=== PATIENT | female | born 1960 | race Caucasian/White ===

== ENCOUNTER 2018-04-11 08:55 | Inpatient (IN) ==
[2018-04-11] MEDS ORDERED: *HR* HYDROmorphone 2 MG/ML SYRINGE IM ONE (09:55)
[2018-04-11] MEDS ORDERED: Ondansetron ODT 4 MG TAB.RAPDIS SL ONE (09:55)
[2018-04-11] MEDS ORDERED: Ketorolac 15 MG/ML VIAL IM ONE (09:55)
[2018-04-11] MEDS ORDERED: Hyoscyamine SL 0.125 MG TAB.SUBL SL ONE (09:56)
--- NOTE | 2018-04-11 09:57 | Emergency Department Note ---
Disposition Clinical Impression: Perforation of sigmoid colon due to diverticulitis, Tachycardia Urinary tract infection Qualifiers: Urinary tract infection type: site unspecified Hematuria presence: without hematuria Qualified Code(s): N39.0 - Urinary tract infection, site not specified Disposition: Admitted As Inpatient Condition: Fair Abdominal Pain HPI - General Chief Complaint: ED Abdominal Pain Stated Complaint: Kidney stone Time Seen by Provider: 04/11/18 09:16 Source: patient, family Mode of arrival: private vehicle Limitations: no limitations Nursing Notes Reviewed: Yes Vital Signs Reviewed: Yes - History of Present Illness Pt Subjective Complaint: abdominal pain Onset (ago): day(s) Consistency: constant, intermittent Location: periumbilical, LLQ, RLQ Pain Severity: moderate, severe Pain Scale: 9 Quality: stabbing, fullness, sharp Radiation: none Migration to: no migration Improves with: nothing Worsens with: nothing Context: other (recent UTI) Associated symptoms: Reports: nausea, dysuria. Denies: vomiting, diarrhea, fever, chills, constipation, hematemesis, hematochezia, melena, hematuria, anorexia, syncope Treatments prior to arrival: other (was seen by PCP three days ago for urinary complaints. Urine dipstick in the office was reportedly negative. Patient states that she was given Rx for ABX and pyridium, but then was called at home two days ago and was instructed to stop the antibiotics b/c the culture was negative. Review of patient's culture today shows that it is positive for E.coli) - Related Data Home Medications Medication Instructions Recorded Confirmed RX: Omeprazole [PriLOSEC] 20 mg PO DAILY 08/15/15 04/12/18 Cyanocobalamin (Vitamin B-12) 1,000 mcg PO DAILY 04/12/18 04/12/18 [Vitamin B12] Ezetimibe 10 mg PO DAILY 04/12/18 04/12/18 Ibuprofen [Ibu-200] 400 mg PO Q2H PRN 04/12/18 04/12/18 Mv,Ca,Min/Folic Acid/Vit K1 1 tab PO DAILY 04/12/18 04/12/18 [One-A-Day Women's 50 Plus Tab] RX: Atenolol [Tenormin] 25 mg PO BID 04/12/18 04/12/18 RX: Tamsulosin [Flomax] 0.4 mg PO DAILY 04/12/18 04/12/18 Varenicline Tartrate [Chantix] 1 mg PO BID 04/12/18 04/12/18 Allergies Allergy/AdvReac Type Severity Reaction Status Date / Time Cefaclor [From [facility]] AdvReac Hives Verified 07/19/15 12:27 All systems ED: reviewed and negative except as stated. Review of Systems: As Per HPI Constitutional: Denies: fever, chills, weakness Cardiovascular: Denies: chest pain, palpitations, dyspnea on exertion Respiratory: Denies: cough, dyspnea, wheezes Gastrointestinal: Reports: as per HPI, abdominal pain, nausea. 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 Absent: scleral icterus, conjunctival injection, periorbital swelling - ENT ENT exam: mucous membranes dry - Neck Neck exam: Present: normal inspection, full ROM, trachea midline. Absent: tenderness, meningismus, lymphadenopathy - Respiratory Respiratory exam: Present: normal lung sounds bilaterally. Absent: respiratory distress, wheezes, stridor (treatment) - Cardiovascular Cardiovascular exam: Present: normal rhythm, tachycardia, normal heart sounds. Absent: systolic murmur, diastolic murmur - Abdominal Exam Abdominal exam: Present: soft, tenderness, distention, diminished bowel sounds. Absent: guarding, rebound, rigidity, organomegaly, Paulino's sign, Rovsing's sign, tenderness at McBurney's Point, ascites, mass, pulsatile mass Abdominal tenderness: Present: RUQ, LLQ, mild - Extremities Exam Extremities exam: Present: normal inspection, full ROM. Absent: pedal edema - Neurological Exam Neurological exam: Present: alert, oriented X3, CN II-XII intact - Psychiatric Psychiatric exam: Present: normal affect, normal mood - Skin Skin exam: Present: warm, dry, intact, normal color Course Course Narrative: Patient presents to ED with for eval of abdominal pain and decreased urine output with urinary frequency. She states, "I think I have a kidney ston e." She appears very uncomfortable and is requesting something for pain. She states that she was seen by her PCP for this about 3 days ago and was on ABX for a day. She was called at home and instructed to stop the ABX. Review of the urine culture today shows that it grew e.coli. Patient ok with catheterization. Chowdhury ordered for suspected retention as patient's abdomen is distended. Urine output was only 50cc. Patient still having some discomfort, but states, "Much improved" after pain meds. CT ordered. CT shows free air in abd, sigmoid diverticulitis with perforation and abscess formation. Radiologist Dr. Gibbs called to discuss the results. He adds that the location of the abscess makes it not amenable to IR procedural evacuation. Discussed results with the patient. She has had a colonoscopy done by Dr. Bae in the past and would like for us to consult him. Case discussed with Dr. Bae. He is agreeable to admit the patient and will send his Surgical ALYSHA, [employer], to eval the patient. - Reevaluation(s) Reevaluation #1: Patient resting comfortably. She is still afebrile. A little anxious about the CT findings. HR is in 130's now. Upon previous re-evaluation, patient was sleeping and HR was in the low 90's. She states that her HR is often fast and she takes a blood pressure pill for it. Reevaluation #2: artis Joe finished. Patient resting comfortably. She is an ED HOLD right now. Vital Signs Temperature 97.4 F L 04/11/18 08:56 Pulse Rate 117 04/11/18 08:56 Respiratory Rate 20 04/11/18 08:56 Blood Pressure 135/80 04/11/18 08:56 O2 Sat by Pulse Oximetry 95 04/11/18 08:56 Temperature 98.3 F 04/12/18 16:18 Pulse Rate 136 04/12/18 16:18 Respiratory Rate 16 04/12/18 16:18 Blood Pressure 146/89 04/12/18 16:18 O2 Sat by Pulse Oximetry 92 04/12/18 16:18 Oxygen Delivery Oxygen Delivery Room Air Abdominal Pain - Medical Records Medical records reviewed: Yes I reviewed the patient's medical records. - Lab Data Lab results reviewed: Yes I reviewed the patient's lab results. Lab results narrative: Laboratory Last Values WBC 13.6 K/mcL (4.3-11.1) H D 04/12/18 03:27 RBC 3.51 M/mcL (3.82-4.97) L 04/12/18 03:27 Hgb 12.0 g/dL (11.5-15.4) D 04/12/18 03:27 Hct 37.2 % (35.3-44.9) 04/12/18 03:27 MCV 106.0 fL (83.0-100.0) H 04/12/18 03:27 MCH 34.2 pg (28.0-33.3) H 04/12/18 03:27 MCHC 32.3 g/dL (31.6-35.5) 04/12/18 03:27 RDW 13.0 % (11.5-14.5) 04/12/18 03:27 Plt Count 209 K/mcL (140-400) 04/12/18 03:27 MPV 11.9 fL (9.4-12.4) 04/12/18 03:27 Immature Gran % 0.8 % (0-4) 04/11/18 11:01 Seg Neutrophils % 56.0 % 04/12/18 03:27 Band Neutrophils % 32.0 % (0-4) H 04/12/18 03:27 Lymphocytes % 2.0 % 04/12/18 03:27 Monocytes % 10.0 % 04/12/18 03:27 Eosinophils % 0.3 % 04/11/18 11:01 Basophils % 0.3 % 04/11/18 11:01 Neutrophils # 12.0 K/mcL (1.6-8.9) H 04/12/18 03:27 Lymphocytes # 0.3 K/mcL (0.6-4.6) L 04/12/18 03:27 Monocytes # 1.4 K/mcL (0.0-1.3) H 04/12/18 03:27 Eosinophils # 0.0 K/mcL (0.0-0.6) 04/11/18 11:01 Basophils # 0.0 K/mcL (0.0-0.2) 04/11/18 11:01 Platelet Estimate Normal (Normal) 04/12/18 03:27 Sodium 139 mEq/L (136-145) 04/12/18 03:27 Potassium 3.9 mEq/L (3.5-5.1) 04/12/18 03:27 Chloride 110 mEq/L (98-107) H 04/12/18 03:27 Carbon Dioxide 20 mEq/L (23-29) L 04/12/18 03:27 BUN 14 mg/dL (6-20) 04/12/18 03:27 Creatinine 0.65 mg/dL (0.60-1.20) 04/12/18 03:27 Est GFR ( Amer) > 60 (> 60) 04/12/18 03:27 Est GFR (Non-Af Amer) > 60 (> 60) 04/12/18 03:27 BUN/Creatinine Ratio 22 (6-26) 04/12/18 03:27 Glucose 163 mg/dL (70-105) H 04/12/18 03:27 POC Glucose 176 mg/dL (70-99) H 04/12/18 06:18 Calculated Osmolality 292 (280-300) 04/12/18 03:27 Lactic Acid 1.4 mmol/L (0.5-2.2) 04/12/18 08:52 Calcium 8.0 mg/dL (8.6-10.3) L 04/12/18 03:27 Phosphorus 3.2 mg/dL (2.7-4.5) 04/12/18 03:27 Magnesium 1.4 mg/dL (1.6-2.6) L 04/12/18 03:27 Prealbumin 9.4 mg/dL (17.0-34.0) L 04/12/18 03:27 Urine Color [place] (Yellow) A 04/11/18 12:35 Urine Clarity Turbid (Clear) A 04/11/18 12:35 Urine pH 5.5 pH Units (5.0-8.0) 04/11/18 12:35 Ur Specific [place] 1.021 (1.010-1.025) 04/11/18 12:35 Urine Protein 100 mg/dL (Neg-Trace) H 04/11/18 12:35 Urine Glucose (UA) Normal mg/dL (Normal) 04/11/18 12:35 Urine Ketones 15 mg/dL (Negative) H 04/11/18 12:35 Urine Blood Negative (Negative) 04/11/18 12:35 Urine Nitrite Positive (Negative) A 04/11/18 12:35 Urine Bilirubin Small (Negative) H 04/11/18 12:35 Urine Urobilinogen Normal mg/dL (Normal) 04/11/18 12:35 Ur Leukocyte Esterase Small (Negative) H 04/11/18 12:35 Urine Microscopic RBC 0-3 per hpf (0-3) 04/11/18 12:35 Urine Microscopic WBC 15-30 per hpf (0-3) H 04/11/18 12:35 Ur Squamous Epith Cells Many per lpf (None-Few) H 04/11/18 12:35 Calcium Oxalate Crystal Present 04/11/18 12:35 Urine Bacteria Many per hpf (None-Few) H 04/11/18 12:35 Ur Culture Indicated? NO. (NO) A 04/11/18 12:35 Result diagrams: 04/12/18 03:27 04/12/18 03:27 Lab Results 04/11/18 04/11/18 04/11/18 Range/Units 11:01 11:01 12:35 WBC 6.4 (4.3-11.1) K/mcL RBC 4.24 (3.82-4.97) M/mcL Hgb 14.6 (11.5-15.4) g/dL Hct 44.2 (35.3-44.9) % MCV 104.2 H (83.0-100.0) fL MCH 34.4 H (28.0-33.3) pg MCHC 33.0 (31.6-35.5) g/dL RDW 12.7 (11.5-14.5) % Plt Count 249 (140-400) K/mcL MPV 12.0 (9.4-12.4) fL Immature Gran % 0.8 (0-4) % Seg Neutrophils % 89.7 % Lymphocytes % 5.9 % Monocytes % 3.0 % Eosinophils % 0.3 % Basophils % 0.3 % Neutrophils # 5.8 (1.6-8.9) K/mcL Lymphocytes # 0.4 L (0.6-4.6) K/mcL Monocytes # 0.2 (0.0-1.3) K/mcL Eosinophils # 0.0 (0.0-0.6) K/mcL Basophils # 0.0 (0.0-0.2) K/mcL Sodium 137 (136-145) mEq/L Potassium 3.7 (3.5-5.1) mEq/L Chloride 105 (98-107) mEq/L Carbon Dioxide 20 L (23-29) mEq/L BUN 12 (6-20) mg/dL Creatinine 0.76 (0.60-1.20) mg/dL Est GFR ( Amer) > 60 (> 60) Est GFR (Non-Af Amer) > 60 (> 60) BUN/Creatinine Ratio 16 (6-26) Glucose 157 H (70-105) mg/dL Calculated Osmolality 287 (280-300) Lactic Acid (0.5-2.2) mmol/L Calcium 9.5 (8.6-10.3) mg/dL Urine Color [place] A (Yellow) Urine Clarity Turbid A (Clear) Urine pH 5.5 (5.0-8.0) pH Units Ur Specific [place] 1.021 (1.010-1.025) Urine Protein 100 H (Neg-Trace) mg/dL Urine Glucose (UA) Normal (Normal) mg/dL Urine Ketones 15 H (Negative) mg/dL Urine Blood Negative (Negative) Urine Nitrite Positive A (Negative) Urine Bilirubin Small H (Negative) Urine Urobilinogen Normal (Normal) mg/dL Ur Leukocyte Esterase Small H (Negative) Urine Microscopic RBC 0-3 (0-3) per hpf Urine Microscopic WBC 15-30 H (0-3) per hpf Ur Squamous Epith Cells Many H (None-Few) per lpf Calcium Oxalate Crystal Present Urine Bacteria Many H (None-Few) per hpf Ur Culture Indicated? NO. A (NO) 04/11/18 Range/Units 13:16 WBC (4.3-11.1) K/mcL RBC (3.82-4.97) M/mcL Hgb (11.5-15.4) g/dL Hct (35.3-44.9) % MCV (83.0-100.0) fL MCH (28.0-33.3) pg MCHC (31.6-35.5) g/dL RDW (11.5-14.5) % Plt Count (140-400) K/mcL MPV (9.4-12.4) fL Immature Gran % (0-4) % Seg Neutrophils % % Lymphocytes % % Monocytes % % Eosinophils % % Basophils % % Neutrophils # (1.6-8.9) K/mcL Lymphocytes # (0.6-4.6) K/mcL Monocytes # (0.0-1.3) K/mcL Eosinophils # (0.0-0.6) K/mcL Basophils # (0.0-0.2) K/mcL Sodium (136-145) mEq/L Potassium (3.5-5.1) mEq/L Chloride (98-107) mEq/L Carbon Dioxide (23-29) mEq/L BUN (6-20) mg/dL Creatinine (0.60-1.20) mg/dL Est GFR ( Amer) (> 60) Est GFR (Non-Af Amer) (> 60) BUN/Creatinine Ratio (6-26) Glucose (70-105) mg/dL Calculated Osmolality (280-300) Lactic Acid 1.5 (0.5-2.2) mmol/L Calcium (8.6-10.3) mg/dL Urine Color (Yellow) Urine Clarity (Clear) Urine pH (5.0-8.0) pH Units Ur Specific [place] (1.010-1.025) Urine Protein (Neg-Trace) mg/dL Urine Glucose (UA) (Normal) mg/dL Urine Ketones (Negative) mg/dL Urine Blood (Negative) Urine Nitrite (Negative) Urine Bilirubin (Negative) Urine Urobilinogen (Normal) mg/dL Ur Leukocyte Esterase (Negative) Urine Microscopic RBC (0-3) per hpf Urine Microscopic WBC (0-3) per hpf Ur Squamous Epith Cells (None-Few) per lpf Calcium Oxalate Crystal Urine Bacteria (None-Few) per hpf Ur Culture Indicated? (NO) - Radiology Data Radiology results reviewed: Yes I reviewed the patient's radiology results. Abdomen/Pelvis CT 04/11/18 11:01 IMPRESSION: Findings suspicious for perforated sigmoid diverticulitis, with multiple foci of free air seen throughout the patient's abdomen and pelvis including adjacent to the sigmoid colon, and extending up into the subdiaphragmatic region bilaterally. There is also a focal area of gas and fluid seen immediately adjacent to the sigmoid colon and focal pericolonic inflammatory changes and sigmoid wall thickening suggestive of a possible small early abscess measuring 2.4 x 2.5 cm. Multiple small bowel loops demonstrate circumferential thickening seen around this area of mesenteric induration, which may be related to inflammatory enteritis secondary to the underlying infectious process. The 1st 2 impressions were discussed with Krystle Douglas in the emergency department at 10:05 a.m. on 04/11/2018. D/ / Justyn Prescott MD / Justyn Prescott MD Interpreting Provider: Justyn Prescott MD
[2018-04-11 11:30] LABS: Basophils % 0.3 %; Eosinophils % 0.3 %; Hematocrit 44.2 % (35.3-44.9); Hemoglobin 14.6 g/dL (11.5-15.4); Immature Granulocytes % 0.8 % (0-4); Lymphocytes # 0.4 K/mcL (0.6-4.6); Lymphocytes % 5.9 %; Mean Corpuscular Hemoglobin 34.4 pg (28.0-33.3); Mean Corpuscular Volume 104.2 fL (83.0-100.0); Monocytes # 0.2 K/mcL (0.0-1.3); Neutrophils # 5.8 K/mcL (1.6-8.9); Platelet Count 249 K/mcL (140-400); Red Blood Count 4.24 M/mcL (3.82-4.97); Red Cell Distribution Width 12.7 % (11.5-14.5); Segmented Neutrophils % 89.7 %
--- NOTE | 2018-04-11 11:36 | Emergency Department Note ---
Disposition Clinical Impression: Diverticulitis Disposition: Admitted As Inpatient Condition: Fair Time of Disposition: 18:55 General Adult HPI - General Chief complaint: ED Abdominal Pain Stated complaint: Kidney stone Time Seen by Provider: 04/11/18 09:16 Source: patient, family Mode of arrival: private vehicle Limitations: no limitations - History of Present Illness Pain Scale: 9 - Related Data Home Medications Medication Instructions Recorded Confirmed Metoprolol [Lopressor] 25 mg PO BID 08/15/15 08/15/15 RX: Omeprazole [PriLOSEC] 20 mg PO DAILY 08/15/15 08/15/15 Previous Rx's Medication Instructions Recorded Sulfamethoxazole/Trimeth DS 1 each PO BID #20 tablet 08/15/15 [Bactrim DS] Allergies Allergy/AdvReac Type Severity Reaction Status Date / Time Cefaclor [From Ceclor] AdvReac Hives Verified 07/19/15 12:27 Past Medical History - Past Medical History Medical history: Reports: GERD, hepatitis, hypertension Surgical history: Reports: cholecystectomy Psychiatric history: Reports: no psych history DESIGN 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 - Social History Smoking Status: Current every day smoker Smokeless Tobacco Status: No Alcohol use: Reports: occasionally, heavy, recent Drug use: Reports: none Physical Exam - General Limitations: no limitations General appearance: alert, in no apparent distress Course Vital Signs Temperature 97.4 F L 04/11/18 08:56 Pulse Rate 117 04/11/18 08:56 Respiratory Rate 20 04/11/18 08:56 Blood Pressure 135/80 04/11/18 08:56 O2 Sat by Pulse Oximetry 95 04/11/18 08:56 Temperature 98.9 F 04/11/18 18:34 Pulse Rate 122 04/11/18 18:34 Respiratory Rate 15 04/11/18 18:34 Blood Pressure 112/75 04/11/18 18:34 O2 Sat by Pulse Oximetry 92 04/11/18 18:34 Oxygen Delivery Oxygen Delivery Room Air Medical Decision Making - Lab Data Result diagrams: 04/11/18 11:01 04/11/18 11:01 Lab Results 04/11/18 04/11/18 04/11/18 Range/Units 11:01 11:01 12:35 WBC 6.4 (4.3-11.1) K/mcL RBC 4.24 (3.82-4.97) M/mcL Hgb 14.6 (11.5-15.4) g/dL Hct 44.2 (35.3-44.9) % MCV 104.2 H (83.0-100.0) fL MCH 34.4 H (28.0-33.3) pg MCHC 33.0 (31.6-35.5) g/dL RDW 12.7 (11.5-14.5) % Plt Count 249 (140-400) K/mcL MPV 12.0 (9.4-12.4) fL Immature Gran % 0.8 (0-4) % Seg Neutrophils % 89.7 % Lymphocytes % 5.9 % Monocytes % 3.0 % Eosinophils % 0.3 % Basophils % 0.3 % Neutrophils # 5.8 (1.6-8.9) K/mcL Lymphocytes # 0.4 L (0.6-4.6) K/mcL Monocytes # 0.2 (0.0-1.3) K/mcL Eosinophils # 0.0 (0.0-0.6) K/mcL Basophils # 0.0 (0.0-0.2) K/mcL Sodium 137 (136-145) mEq/L Potassium 3.7 (3.5-5.1) mEq/L Chloride 105 (98-107) mEq/L Carbon Dioxide 20 L (23-29) mEq/L BUN 12 (6-20) mg/dL Creatinine 0.76 (0.60-1.20) mg/dL Est GFR ( Amer) > 60 (> 60) Est GFR (Non-Af Amer) > 60 (> 60) BUN/Creatinine Ratio 16 (6-26) Glucose 157 H (70-105) mg/dL Calculated Osmolality 287 (280-300) Lactic Acid (0.5-2.2) mmol/L Calcium 9.5 (8.6-10.3) mg/dL Urine Color [place] A (Yellow) Urine Clarity Turbid A (Clear) Urine pH 5.5 (5.0-8.0) pH Units Ur Specific [place] 1.021 (1.010-1.025) Urine Protein 100 H (Neg-Trace) mg/dL Urine Glucose (UA) Normal (Normal) mg/dL Urine Ketones 15 H (Negative) mg/dL Urine Blood Negative (Negative) Urine Nitrite Positive A (Negative) Urine Bilirubin Small H (Negative) Urine Urobilinogen Normal (Normal) mg/dL Ur Leukocyte Esterase Small H (Negative) Urine Microscopic RBC 0-3 (0-3) per hpf Urine Microscopic WBC 15-30 H (0-3) per hpf Ur Squamous Epith Cells Many H (None-Few) per lpf Calcium Oxalate Crystal Present Urine Bacteria Many H (None-Few) per hpf Ur Culture Indicated? NO. A (NO) 04/11/18 Range/Units 13:16 WBC (4.3-11.1) K/mcL RBC (3.82-4.97) M/mcL Hgb (11.5-15.4) g/dL Hct (35.3-44.9) % MCV (83.0-100.0) fL MCH (28.0-33.3) pg MCHC (31.6-35.5) g/dL RDW (11.5-14.5) % Plt Count (140-400) K/mcL MPV (9.4-12.4) fL Immature Gran % (0-4) % Seg Neutrophils % % Lymphocytes % % Monocytes % % Eosinophils % % Basophils % % Neutrophils # (1.6-8.9) K/mcL Lymphocytes # (0.6-4.6) K/mcL Monocytes # (0.0-1.3) K/mcL Eosinophils # (0.0-0.6) K/mcL Basophils # (0.0-0.2) K/mcL Sodium (136-145) mEq/L Potassium (3.5-5.1) mEq/L Chloride (98-107) mEq/L Carbon Dioxide (23-29) mEq/L BUN (6-20) mg/dL Creatinine (0.60-1.20) mg/dL Est GFR ( Amer) (> 60) Est GFR (Non-Af Amer) (> 60) BUN/Creatinine Ratio (6-26) Glucose (70-105) mg/dL Calculated Osmolality (280-300) Lactic Acid 1.5 (0.5-2.2) mmol/L Calcium (8.6-10.3) mg/dL Urine Color (Yellow) Urine Clarity (Clear) Urine pH (5.0-8.0) pH Units Ur Specific [place] (1.010-1.025) Urine Protein (Neg-Trace) mg/dL Urine Glucose (UA) (Normal) mg/dL Urine Ketones (Negative) mg/dL Urine Blood (Negative) Urine Nitrite (Negative) Urine Bilirubin (Negative) Urine Urobilinogen (Normal) mg/dL Ur Leukocyte Esterase (Negative) Urine Microscopic RBC (0-3) per hpf Urine Microscopic WBC (0-3) per hpf Ur Squamous Epith Cells (None-Few) per lpf Calcium Oxalate Crystal Urine Bacteria (None-Few) per hpf Ur Culture Indicated? (NO) Attestation Statement - Attestation Attestation: For this encounter, I have reviewed the THREAD SEPARATOR or PA documentation, treatment plan, and medical decision making;.Face to face time provided Plan of care discussed with the physician's graduate research assistant Concern for perforated diverticula. The patient to be admitted to the surgical service after initiation of broad-spectrum antibiotics
[2018-04-11 11:49] LABS: Blood Urea Nitrogen 12 mg/dL (6-20); Calcium 9.5 mg/dL (8.6-10.3); Carbon Dioxide 20 mEq/L (23-29); Chloride 105 mEq/L (98-107); Glucose 157 mg/dL (70-105); Osmolality,Calculated 287 (280-300); Potassium 3.7 mEq/L (3.5-5.1); Sodium 137 mEq/L (136-145)
[2018-04-11] MEDS: 0.9 % Sodium Chloride 1,000 ML IVC ONE ×2 (11:56→13:27)
[2018-04-11] MEDS ORDERED: Piperacillin/Tazobactam 4.5 GM in 0.9 % Sodium Chloride Mini Bag 100 ML IVPB ONE (12:08)
[2018-04-11] MEDS ORDERED: MetroNIDAZOLE 500 MG/100 ML 500 MG/100 ML BAG IVPB ONE (12:22)
[2018-04-11] MEDS ORDERED: Clindamycin 600 MG/50 ML 600 MG/50 ML IV.SOLN IVPB ONE (12:22)
[2018-04-11 12:29] LABS: BUN/Creatinine Ratio 16 (6-26); eGFR For Non-African Americans > 60 (> 60)
[2018-04-11] MEDS ORDERED: 0.9 % Sodium Chloride 1,000 ML IVC ONE ×4 (12:49→22:20)
[2018-04-11] MEDS ORDERED: *HR* HYDROmorphone (PF) 1 MG/ML SYRINGE IVP ONE (12:51)
[2018-04-11 12:52] LABS: Bilirubin,Urine Small (Negative); Blood,Urine Negative (Negative); Clarity,Urine Turbid (Clear); Glucose,Urine (UA) Normal (Normal); Ketones,Urine 15 mg/dL (Negative); Leukocyte Esterase,Urine Small (Negative); Nitrite,Urine Positive (Negative); PH,Urine 5.5 pH Units (5.0-8.0); Protein,Urine 100 mg/dL (Neg-Trace); Specific Gravity,Urine 1.021 (1.010-1.025); Urobilinogen,Urine Normal (Normal)
[2018-04-11 12:54] LABS: Bacteria,Urine Many per hpf (None-Few); Squamous Epithelial Cell,Urine Many per lpf (None-Few); WBC,Urine 15-30 per hpf (0-3)
[2018-04-11 13:11] LABS: Color,Urine Orange (Yellow)
[2018-04-11 13:23] LABS: Calcium Oxalate Crystals,Urine Present; RBC,Urine 0-3 per hpf (0-3)
[2018-04-11] MEDS ORDERED: Ondansetron 4 MG/2 ML VIAL IVP PRN (14:51)
[2018-04-11] MEDS ORDERED: *HR* Promethazine 25 MG/ML VIAL IVP PRN (14:51)
[2018-04-11] MEDS ORDERED: OXYCODONE Oral CONC 10 MG/0.5 ML ORAL.SYG SL PRN ×2 (14:51)
[2018-04-11] MEDS ORDERED: *HR* Metoprolol 5 MG/5 ML VIAL IVP PRN (14:56)
--- NOTE | 2018-04-11 15:05 | General Surg History&Physical ---
Date of Encounter: 04/11/18 Time of Encounter: 15:05 Assessment and Plan (1) SIRS (systemic inflammatory response syndrome) Current Visit: Yes Status: Acute The assessment and plan as outlined above was discussed with the patient and/or family members who expressed understanding and agreement. All questions were answered. Patient meets Sirs criteria with increased heart rate, respiratory rate, and infection source. Her white blood cell count and lactic acid are normal. We will continue to closely monitor. Repeat am labs cardiac monitoring blood cultures obtained in the emergency department pending (2) Perforation of sigmoid colon due to diverticulitis Current Visit: Yes Status: Acute The assessment and plan as outlined above was discussed with the patient and/or family members who expressed understanding and agreement. All questions were answered. CT of the abdomen and pelvis with out contrast on 04/11/2018 noted findings suspicious for a perforated sigmoid diverticulitis with multiple foci free air seen throughout the abdomen. There is a 2.4 x 2.5 cm possible small early abscess forming. There multiple loops of circumferential thickening around the mesenteric induration likely related to inflammatory enteritis. We will continue to closely monitor. Bowel rest pain control repeat a.m. labs continue IV antibiotics (Cipro and Flagyl) out of bed to chair TID continue Chowdhury catheter for accurate intake and output G.I. and DVT prophylaxis (3) Smoking history Current Visit: Yes Status: Acute The assessment and plan as outlined above was discussed with the patient and/or family members who expressed understanding and agreement. All questions were answered. Aggressive pulmonary toileting incentive spirometry schedule duonebs x 2 doses then PRN (4) Tachycardia Current Visit: Yes Status: Acute The assessment and plan as outlined above was discussed with the patient and/or family members who expressed understanding and agreement. All questions were answered. Continue to closely monitor History of Present Illness Chief complaint: abdominal pain HPI: Ms. Gomez is a 57 year old female presented to the emergency department on 04/11/2018 following a 6 day history of left lower abdominal and groin pain. Patient states on Sunday night she began having sharp abdominal discomfort that was 8 out of 10 in the left lower quadrant groin. She reports a history of kidney stones and states this felt similar to previous kidney stone. She felt generalized fatigue and lightheadedness associated. She reports on Sunday she went to her PCP and was placed on an antibiotic for urinary tract infection as well as Pyridium and Flomax. She states she does not feel like her symptoms improved with this medication. She continued to feel poorly on Sunday and Sunday, on Sunday she decided she would attempt to go to work but states she could "barely make it today." On her abdominal discomfort became so severe that she needed to come to the emergency department. She reports a fever at home but not check her temperature. She reports he last BM was one day ago and was normal for her. She had a colonoscopy "2-3 years ago." She endorses chills, abdominal discomfort is described, shortness of breath that is new, and frequency/burning with urination is unchanged. She reports her abdominal discomfort improvement significantly after a dose of pain medication in the emergency department. Her clinical course thus far has included placement of Chowdhury catheter, administration of Cipro, Flagyl, and Cleocin. She had a CT of the abdomen and pelvis which noted findings suspicious for perforated diverticulitis (see assessment and plan for further detail). We will admit the patient for medical management of perforated appendicitis and urinary tract infection. Past Med Surg Social Fam HX - Past Medical History Source: patient, old records reviewed Medical history: GERD, hepatitis, hypertension Psychiatric history: no psych history - Past Surgical History Surgical History: cholecystectomy Additional surgical history: tonsillectomy - Social History Smoking Status: Current every day smoker Packs per day: 4-5 cigarrettes Smokeless Tobacco Status: No Alcohol use: occasionally, heavy, recent Drug use: none Occupational status: employed Current living situation: Home - Independent Activity Level: Independent ambulation Recent Out of Country Travel Within the Last 8 Weeks: No Exposure or Possible Exposure to Illness During Travel: No Medications and Allergies Metoprolol [Lopressor] 25 mg PO BID 08/15/15 [History] Omeprazole [PriLOSEC] 20 mg PO DAILY 08/15/15 [History] Sulfamethoxazole/Trimeth DS [Bactrim DS] 1 each PO BID #20 tablet 08/15/15 [Rx] Allergy/AdvReac Type Severity Reaction Status Date / Time Cefaclor [From Ceclor] AdvReac Hives Verified 07/19/15 12:27 Review of Systems All systems PM: reviewed and no additional remarkable complaints except as st ated All systems PM: The remainder of the systems were reviewed and are negative General Surgery Exam Initial Vital Signs Temp Pulse Resp BP Pulse Ox 97.4 F L 117 20 135/80 95 04/11/18 08:56 04/11/18 08:56 04/11/18 08:56 04/11/18 08:56 04/11/18 08:56 - General physical appearance no distress, other (SOB at rest) - Eyes normal ocular movement - Neck trachea midline - Respiratory other (Short of breath at rest, decreased breath sounds) - Cardiovascular Additional Comments: Distant heart tones, regular rhythm, tachycardia - Abdomen Abdomen general surgery: Present: distended, tender, guarding. Absent: bowel sounds present Hernia: Present: none - Integumentary Integumentary general surgery: Present: warm and dry - Neurologic Present: CN 2-12 grossly intact, normal coordination - Musculoskeletal Present: normal gait, normal posture - Psychiatric Psychiatric general surgery: Present: appropriate, oriented to person, oriented to place, oriented to time, speech is normal, memory intact Results - Labs 04/11/18 11:01 04/11/18 11:01 Abnormal lab results MCV 104.2 fL (83.0-100.0) H 04/11/18 11:01 MCH 34.4 pg (28.0-33.3) H 04/11/18 11:01 Lymphocytes # 0.4 K/mcL (0.6-4.6) L 04/11/18 11:01 Carbon Dioxide 20 mEq/L (23-29) L 04/11/18 11:01 Glucose 157 mg/dL (70-105) H 04/11/18 11:01 Urine Color Dane (Yellow) A 04/11/18 12:35 Urine Clarity Turbid (Clear) A 04/11/18 12:35 Urine Protein 100 mg/dL (Neg-Trace) H 04/11/18 12:35 Urine Ketones 15 mg/dL (Negative) H 04/11/18 12:35 Urine Nitrite Positive (Negative) A 04/11/18 12:35 Urine Bilirubin Small (Negative) H 04/11/18 12:35 Ur Leukocyte Esterase Small (Negative) H 04/11/18 12:35 Urine Microscopic WBC 15-30 per hpf (0-3) H 04/11/18 12:35 Ur Squamous Epith Cells Many per lpf (None-Few) H 04/11/18 12:35 Urine Bacteria Many per hpf (None-Few) H 04/11/18 12:35 Ur Culture Indicated? NO. (NO) A 04/11/18 12:35 Diabetes panel 04/11/18 Range/Units 11:01 Sodium 137 (136-145) mEq/L Potassium 3.7 (3.5-5.1) mEq/L Chloride 105 (98-107) mEq/L Carbon Dioxide 20 L (23-29) mEq/L BUN 12 (6-20) mg/dL Creatinine 0.76 (0.60-1.20) mg/dL Glucose 157 H (70-105) mg/dL Calcium 9.5 (8.6-10.3) mg/dL Calcium panel 04/11/18 Range/Units 11:01 Calcium 9.5 (8.6-10.3) mg/dL Pituitary panel 04/11/18 Range/Units 11:01 Sodium 137 (136-145) mEq/L Potassium 3.7 (3.5-5.1) mEq/L Chloride 105 (98-107) mEq/L Carbon Dioxide 20 L (23-29) mEq/L BUN 12 (6-20) mg/dL Creatinine 0.76 (0.60-1.20) mg/dL Glucose 157 H (70-105) mg/dL Calcium 9.5 (8.6-10.3) mg/dL Adrenal panel 04/11/18 Range/Units 11:01 Sodium 137 (136-145) mEq/L Potassium 3.7 (3.5-5.1) mEq/L Chloride 105 (98-107) mEq/L Carbon Dioxide 20 L (23-29) mEq/L BUN 12 (6-20) mg/dL Creatinine 0.76 (0.60-1.20) mg/dL Glucose 157 H (70-105) mg/dL Calcium 9.5 (8.6-10.3) mg/dL All other labs normal. - Imaging CT scan - abdomen: report reviewed CT scan - pelvis: report reviewed
[2018-04-11] MEDS: Pantoprazole 40 MG VIAL IVP SCH (16:27)
[2018-04-11] MEDS: Ipratropium/Albuterol Neb 3 ML IH SCH ×2 (16:41→22:15)
[2018-04-11] MEDS: 0.9 % Sodium Chloride 1,000 ML IVC SCH (17:26)
[2018-04-11] MEDS: *HR* Heparin 5,000 UNIT/ML VIAL SQ SCH (17:27)
[2018-04-11] MEDS: *HR* HYDROmorphone 2 MG/ML SYRINGE IVP PRN ×2 (18:44→21:42)
[2018-04-11] MEDS: MetroNIDAZOLE 500 MG/100 ML 500 MG/100 ML BAG IVPB SCH (20:30)
[2018-04-12] MEDS: *HR* HYDROmorphone 2 MG/ML SYRINGE IVP PRN ×5 (00:41→16:10)
[2018-04-12 04:03] LABS: Hematocrit 37.2 % (35.3-44.9); Mean Corpuscular HGB Conc 32.3 g/dL (31.6-35.5); Mean Corpuscular Hemoglobin 34.2 pg (28.0-33.3); Mean Platelet Volume 11.9 fL (9.4-12.4); Platelet Count 209 K/mcL (140-400); Red Blood Count 3.51 M/mcL (3.82-4.97)
[2018-04-12] MEDS: MetroNIDAZOLE 500 MG/100 ML 500 MG/100 ML BAG IVPB SCH (04:22)
[2018-04-12 04:26] LABS: BUN/Creatinine Ratio 22 (6-26); Blood Urea Nitrogen 14 mg/dL (6-20); Carbon Dioxide 20 mEq/L (23-29); Chloride 110 mEq/L (98-107); Glucose 163 mg/dL (70-105); Magnesium 1.4 mg/dL (1.6-2.6); Osmolality,Calculated 292 (280-300); Phosphorous 3.2 mg/dL (2.7-4.5); Potassium 3.9 mEq/L (3.5-5.1); Sodium 139 mEq/L (136-145); eGFR For Non-African Americans > 60 (> 60)
[2018-04-12 04:59] LABS: Lymphocytes # 0.3 K/mcL (0.6-4.6); Monocytes # 1.4 K/mcL (0.0-1.3); Platelet Estimate Normal (Normal)
[2018-04-12] MEDS: Ipratropium/Albuterol Neb 3 ML IH PRN (05:08)
[2018-04-12] MEDS: *HR* Heparin 5,000 UNIT/ML VIAL SQ SCH ×2 (05:54→17:49)
--- NOTE | 2018-04-12 07:17 | Discharge Summary ---
Orders not resulted at time of discharge: Pending orders 04/11/18 13:16 Culture,Blood [BC] Stat Date of Encounter: 04/12/18 General Surgery Exam Initial Vital Signs Temp Pulse Resp BP Pulse Ox 97.4 F L 117 20 135/80 95 04/11/18 08:56 04/11/18 08:56 04/11/18 08:56 04/11/18 08:56 04/11/18 08:56 - Hospital Course Hospital course: Ms. Gomez is a 57 year old female - Time Spent with Patient Total time spent providing and/or coordinating discharge services: - Discharge Medications Home Medications: Metoprolol [Lopressor] 25 mg PO BID 08/15/15 [History] Omeprazole [PriLOSEC] 20 mg PO DAILY 08/15/15 [History] Sulfamethoxazole/Trimeth DS [Bactrim DS] 1 each PO BID #20 tablet 08/15/15 [Rx] Allergies/Adverse Reactions: Allergy/AdvReac Type Severity Reaction Status Date / Time Cefaclor [From Ceclor] AdvReac Hives Verified 07/19/15 12:27 Date of admission: 04/11/18 15:06 Primary care physician: Amber Skinner DO Labs on day of discharge: Labs from last 24 hours 04/12/18 04/12/18 04/12/18 03:27 03:27 03:27 WBC 13.6 H D RBC 3.51 L Hgb 12.0 D Hct 37.2 MCV 106.0 H MCH 34.2 H MCHC 32.3 RDW 13.0 Plt Count 209 MPV 11.9 Immature Gran % Seg Neutrophils % 56.0 Band Neutrophils % 32.0 H Lymphocytes % 2.0 Monocytes % 10.0 Eosinophils % Basophils % Neutrophils # 12.0 H Lymphocytes # 0.3 L Monocytes # 1.4 H Eosinophils # Basophils # Platelet Estimate Normal Sodium 139 Potassium 3.9 Chloride 110 H Carbon Dioxide 20 L BUN 14 Creatinine 0.65 Est GFR ( Amer) > 60 Est GFR (Non-Af Amer) > 60 BUN/Creatinine Ratio 22 Glucose 163 H POC Glucose Calculated Osmolality 292 Lactic Acid Calcium 8.0 L Phosphorus 3.2 Magnesium 1.4 L Prealbumin 9.4 L Urine Color Urine Clarity Urine pH Ur Specific [place] Urine Protein Urine Glucose (UA) Urine Ketones Urine Blood Urine Nitrite Urine Bilirubin Urine Urobilinogen Ur Leukocyte Esterase Urine Microscopic RBC Urine Microscopic WBC Ur Squamous Epith Cells Calcium Oxalate Crystal Urine Bacteria Ur Culture Indicated? 04/12/18 04/11/18 04/11/18 01:06 17:07 13:16 WBC RBC Hgb Hct MCV MCH MCHC RDW Plt Count MPV Immature Gran % Seg Neutrophils % Band Neutrophils % Lymphocytes % Monocytes % Eosinophils % Basophils % Neutrophils # Lymphocytes # Monocytes # Eosinophils # Basophils # Platelet Estimate Sodium Potassium Chloride Carbon Dioxide BUN Creatinine Est GFR ( Amer) Est GFR (Non-Af Amer) BUN/Creatinine Ratio Glucose POC Glucose 162 H 179 H Calculated Osmolality Lactic Acid 1.5 Calcium Phosphorus Magnesium Prealbumin Urine Color Urine Clarity Urine pH Ur Specific [place] Urine Protein Urine Glucose (UA) Urine Ketones Urine Blood Urine Nitrite Urine Bilirubin Urine Urobilinogen Ur Leukocyte Esterase Urine Microscopic RBC Urine Microscopic WBC Ur Squamous Epith Cells Calcium Oxalate Crystal Urine Bacteria Ur Culture Indicated? 04/11/18 04/11/18 04/11/18 12:35 11:01 11:01 WBC 6.4 RBC 4.24 Hgb 14.6 Hct 44.2 MCV 104.2 H MCH 34.4 H MCHC 33.0 RDW 12.7 Plt Count 249 MPV 12.0 Immature Gran % 0.8 Seg Neutrophils % 89.7 Band Neutrophils % Lymphocytes % 5.9 Monocytes % 3.0 Eosinophils % 0.3 Basophils % 0.3 Neutrophils # 5.8 Lymphocytes # 0.4 L Monocytes # 0.2 Eosinophils # 0.0 Basophils # 0.0 Platelet Estimate Sodium 137 Potassium 3.7 Chloride 105 Carbon Dioxide 20 L BUN 12 Creatinine 0.76 Est GFR ( Amer) > 60 Est GFR (Non-Af Amer) > 60 BUN/Creatinine Ratio 16 Glucose 157 H POC Glucose Calculated Osmolality 287 Lactic Acid Calcium 9.5 Phosphorus Magnesium Prealbumin Urine Color [place] A Urine Clarity Turbid A Urine pH 5.5 Ur Specific [place] 1.021 Urine Protein 100 H Urine Glucose (UA) Normal Urine Ketones 15 H Urine Blood Negative Urine Nitrite Positive A Urine Bilirubin Small H Urine Urobilinogen Normal Ur Leukocyte Esterase Small H Urine Microscopic RBC 0-3 Urine Microscopic WBC 15-30 H Ur Squamous Epith Cells Many H Calcium Oxalate Crystal Present Urine Bacteria Many H Ur Culture Indicated? NO. A Preliminary micro results at discharge 04/11/18 13:16 Blood Culture - Preliminary Peripheral Venipuncture Culture is incubating and being continuously monitored for growth. Final report to follow. 04/11/18 13:16 Blood Culture - Preliminary Peripheral Venipuncture Culture is incubating and being continuously monitored for growth. Final report to follow. - Impressions ITS Impressions Abdomen/Pelvis CT 04/11/18 11:01 IMPRESSION: Findings suspicious for perforated sigmoid diverticulitis, with multiple foci of free air seen throughout the patient's abdomen and pelvis including adjacent to the sigmoid colon, and extending up into the subdiaphragmatic region bilaterally. There is also a focal area of gas and fluid seen immediately adjacent to the sigmoid colon and focal pericolonic inflammatory changes and sigmoid wall thickening suggestive of a possible small early abscess measuring 2.4 x 2.5 cm. Multiple small bowel loops demonstrate circumferential thickening seen around this area of mesenteric induration, which may be related to inflammatory enteritis secondary to the underlying infectious process. The 1st 2 impressions were discussed with Krystle Douglas in the emergency department at 10:05 a.m. on 04/11/2018. D/ / Justyn Prescott MD / Justyn Prescott MD Interpreting Provider: Justyn Prescott MD - Patient Status Condition: Fair - Discharge Instructions Follow Up With: Amber Skinner DO [Primary Care Provider] -
[2018-04-12] MEDS: Pantoprazole 40 MG VIAL IVP SCH (08:13)
[2018-04-12] MEDS: 0.9 % Sodium Chloride 1,000 ML IVC SCH ×3 (08:14→17:43)
--- NOTE | 2018-04-12 09:45 | General Surgery Progress Note ---
Date of Encounter: 04/12/18 Time of Encounter: 09:43 - Assessment and Plan (1) Diverticulitis Current Visit: Yes Status: Acute Pt has perforate sigmoid diverticulitis. She feels a bit better than yesterday. We had a conversation about conservative manangement vs needing the OR later today or the weekend. If she declines in anyway, she will need a Zaldivar's procedure. Subjective Narrative: Pt reports feeling a little better since admission. She does admit to increasing SOB. However, she is requesting to walk and sit in a chair. Objective Vital Signs - Last 8 Hours Temp Pulse Resp BP Pulse Ox 04/12/18 07:29 98.2 F 126 18 118/76 91 04/12/18 05:09 16 97 04/12/18 04:15 99.0 F 130 20 119/75 91 Intake and Output 04/11/18 04/12/18 04/12/18 23:59 07:59 15:59 Intake Total 1300 / 1300 1000 / 1000 Output Total 0 / 0 550 / 550 Balance 1300 / 1300 450 / 450 Intake: IV Fluids 1300 / 1300 1000 / 1000 0.9 % Sodium Chloride 1,000 ML 1000 / 1000 1000 / 1000 @ 125 mls/hr IVC .Q8H [place] Rx#: [id number] Cipro Premix 400 MG/200 ML 400 200 / 200 mg In 200 ml @ 200 mls/hr IVPB Q12HR [place] Rx#:[id number] Flagyl Premix 500 MG/100 ML 500 100 / 100 mg In 100 ml @ 100 mls/hr IVPB Q8H [place] Rx#:[id number] Oral 0 / 0 Output: Catheter 0 / 0 550 / 550 Urethral (Chowdhury) 250 / 250 Other: Meal NPO Percent of Meal Consumed 0% Blood Glucose* 179 176 - General physical appearance well developed, well nourished - Eyes PERRL - Neck Neck exam: trachea midline - Abdomen Abdomen: Present: soft, tender Abdominal Tenderness: RLQ, LLQ, suprapubic - Integumentary no abnormal pigmentation - Neurologic CN 2-12 grossly intact - Labs 04/12/18 03:27 04/12/18 03:27 Diabetes panel 04/11/18 04/12/18 Range/Units 11:01 03:27 Sodium 137 139 (136-145) mEq/L Potassium 3.7 3.9 (3.5-5.1) mEq/L Chloride 105 110 H (98-107) mEq/L Carbon Dioxide 20 L 20 L (23-29) mEq/L BUN 12 14 (6-20) mg/dL Creatinine 0.76 0.65 (0.60-1.20) mg/dL Glucose 157 H 163 H (70-105) mg/dL Calcium 9.5 8.0 L (8.6-10.3) mg/dL Calcium panel 04/11/18 04/12/18 Range/Units 11:01 03:27 Calcium 9.5 8.0 L (8.6-10.3) mg/dL Phosphorus 3.2 (2.7-4.5) mg/dL Pituitary panel 04/11/18 04/12/18 Range/Units 11:01 03:27 Sodium 137 139 (136-145) mEq/L Potassium 3.7 3.9 (3.5-5.1) mEq/L Chloride 105 110 H (98-107) mEq/L Carbon Dioxide 20 L 20 L (23-29) mEq/L BUN 12 14 (6-20) mg/dL Creatinine 0.76 0.65 (0.60-1.20) mg/dL Glucose 157 H 163 H (70-105) mg/dL Calcium 9.5 8.0 L (8.6-10.3) mg/dL Adrenal panel 04/11/18 04/12/18 Range/Units 11:01 03:27 Sodium 137 139 (136-145) mEq/L Potassium 3.7 3.9 (3.5-5.1) mEq/L Chloride 105 110 H (98-107) mEq/L Carbon Dioxide 20 L 20 L (23-29) mEq/L BUN 12 14 (6-20) mg/dL Creatinine 0.76 0.65 (0.60-1.20) mg/dL Glucose 157 H 163 H (70-105) mg/dL Calcium 9.5 8.0 L (8.6-10.3) mg/dL - Imaging CT scan - abdomen: image reviewed CT Scan - head: image reviewed Consult Discharge Plan - Plan Referrals: Amber Skinner DO [Primary Care Provider] -
--- NOTE | 2018-04-12 14:07 | Electrocardiograph Report ---
[facility] Test Date: 2018-04-11 Pat Name: Gardenia Gomez Department: [id number] Room: 3A44 Gender: F Hooker Laster: : 1960 Requested By: Krystle Douglas Order Number: [id number] Reading MD: Rashid Goldstein Measurements Intervals [place] Rate: 132 P: 45 RI: 147 QRS: 35 QRSD: 72 T: QT: 301 QTc: 446 Interpretive Statements Sinus tachycardia Ventricular premature complex Aberrant complex Probable left atrial enlargement Borderline repol abnormality, diffuse leads Electronically Signed On 04-12-2018 14:06:00 EST by Rashid Goldstein
[2018-04-12] MEDS: Piperacillin/Tazobactam 3.375 GM in 0.9 % Sodium Chloride Mini Bag 100 ML IVPB SCH (16:11)
--- NOTE | 2018-04-12 16:37 | Event Note ---
Date of Encounter: 04/12/18 Time of Encounter: 14:30 I evaluated the patient this morning on rounds and this afternoon. The abdominal examination is somewhat improved. I spoke with the patient's primary care doctor who raised a concern of home alcohol use. It is noted that throughout the day the patient became more tachycardic but her blood pressure elevated. Physical examination is not consistent with worsening sepsis however the picture is somewhat confusing. I think it is prudent to use beta tina with close attention to the patient's urinary output and systolic blood pressure. I will add Librium. We will watch the patient's overall clinical progress very closely. CBC and BMP are ordered for the morning Kunal Lambert MD FACS
[2018-04-12] MEDS ORDERED: *HR* LORazepam 2 MG/ML VIAL IVP PRN (16:43)
[2018-04-12] MEDS: *HR* Metoprolol 5 MG/5 ML VIAL IVP SCH (20:08)
[2018-04-13] MEDS: Piperacillin/Tazobactam 3.375 GM in 0.9 % Sodium Chloride Mini Bag 100 ML IVPB SCH ×3 (00:36→14:51)
[2018-04-13] MEDS: *HR* Metoprolol 5 MG/5 ML VIAL IVP SCH ×3 (00:38→17:52)
[2018-04-13] MEDS: 0.9 % Sodium Chloride 1,000 ML IVC SCH (01:59)
[2018-04-13] MEDS: *HR* HYDROmorphone 2 MG/ML SYRINGE IVP PRN ×2 (02:00→06:21)
[2018-04-13] MEDS: *HR* Heparin 5,000 UNIT/ML VIAL SQ SCH ×2 (06:16→17:52)
[2018-04-13 06:52] LABS: Basophils # 0.1 K/mcL (0.0-0.2); Basophils % 0.3 %; Eosinophils % 0.1 %; Hematocrit 36.9 % (35.3-44.9); Hemoglobin 11.7 g/dL (11.5-15.4); Immature Granulocytes % 2.6 % (0-4); Lymphocytes # 1.2 K/mcL (0.6-4.6); Lymphocytes % 6.2 %; Mean Corpuscular HGB Conc 31.7 g/dL (31.6-35.5); Mean Corpuscular Hemoglobin 34.3 pg (28.0-33.3); Mean Corpuscular Volume 108.2 fL (83.0-100.0); Mean Platelet Volume 12.2 fL (9.4-12.4); Monocytes # 1.1 K/mcL (0.0-1.3); Monocytes % 5.9 %; Neutrophils # 15.8 K/mcL (1.6-8.9); Platelet Count 263 K/mcL (140-400); Red Blood Count 3.41 M/mcL (3.82-4.97); Red Cell Distribution Width 13.2 % (11.5-14.5); Segmented Neutrophils % 84.9 %
[2018-04-13 07:12] LABS: BUN/Creatinine Ratio 35 (6-26); Blood Urea Nitrogen 20 mg/dL (6-20); Calcium 9.3 mg/dL (8.6-10.3); Carbon Dioxide 22 mEq/L (23-29); Chloride 110 mEq/L (98-107); Glucose 145 mg/dL (70-105); Osmolality,Calculated 299 (280-300); Potassium 3.6 mEq/L (3.5-5.1); Sodium 142 mEq/L (136-145); eGFR For Non-African Americans > 60 (> 60)
--- NOTE | 2018-04-13 08:23 | Event Note ---
Date of Encounter: 04/13/18 Time of Encounter: 08:05 The patient is seen and evaluated on morning rounds. Her abdomen is distended and tender. She has tachypnea with respiratory rates in the low 30s and mild wheezing. Heart rate remains at 120. Blood pressure is 126/80. Cell count is elevated at 18,700. She is not responding to antibiotic therapy. I feel that she is on the trajectory of clinical deterioration. I have recommended Zaldivar's procedure. We will place her in the intensive care unit after surgery. I discussed the risks and benefits of continued conservative therapy versus surgery with the patient and her . She has decided to proceed with Zaldivar's procedure. We will proceed on an urgent basis
[2018-04-13] MEDS: Pantoprazole 40 MG VIAL IVP SCH (08:32)
--- NOTE | 2018-04-13 08:35 | Anesthesia Evaluation PreOp ---
Date of Encounter: 04/13/18 Time of Encounter: 09:17 - Past History Planned Operation: EXP LAPAROTOMY, LAR Cardiac History: HTN, Hyperlipidemia Pulmonary History: Smoker (1/2 PPD) ARBORICULTURIST History: Other (? ALCOHOLISM) Other Medical History: Hepatic (HEPATITIS), GERD, Other (PERFORATED SIGMOID DIVERTICULITIS, PERITONITIS, SEPSIS) Anesthesia History: No Prior Anesthetic Complications, Past Anesthesia Alcohol Use: occasionally, heavy, recent Drug use: none Medications and Allergies Omeprazole [PriLOSEC] 20 mg PO DAILY 08/15/15 [History] Atenolol [Tenormin] 25 mg PO BID 04/12/18 [History] Cyanocobalamin (Vitamin B-12) [Vitamin B12] 1,000 mcg PO DAILY 04/12/18 [History] Ezetimibe 10 mg PO DAILY 04/12/18 [History] Ibuprofen [Ibu-200] 400 mg PO Q2H PRN 04/12/18 [History] Mv,Ca,Min/Folic Acid/Vit K1 [One-A-Day Women's 50 Plus Tab] 1 tab PO DAILY 04/12/18 [History] Tamsulosin [Flomax] 0.4 mg PO DAILY 04/12/18 [History] Varenicline Tartrate [Chantix] 1 mg PO BID 04/12/18 [History] Allergy/AdvReac Type Severity Reaction Status Date / Time Cefaclor [From Ceclor] AdvReac Hives Verified 07/19/15 12:27 - Meds/Allergy Pre-op Review Medications Reviewed: Yes Allergies Reviewed: Yes Beta Blockers on Current Med List: Yes If Beta Blockers taken, Date/Time (Last Dose taken): 0600 Anesthesia Results - Labs 04/13/18 06:05 04/13/18 06:05 Anesthesia Exam Vital Signs/O2 Sat/Glucose, Most Recent Temp Pulse Resp BP Pulse Ox 99.4 F 121 18 129/60 96 04/13/18 06:57 04/13/18 06:57 04/13/18 06:57 04/13/18 06:57 04/13/18 06:57 Blood Glucose* 134 Weight: 91 KG - BMI 30 NPO (# of Hours): >8 - HEENT Mallampati: III Teeth: Normal Oral Opening: Greater than 3 - Cardiac Rhythm: Regular (TACHYCARDIA) - Pulmonary Breath Sounds: bilateral Clear (TACHYPNEA, LABORED BREATHING) Respiratory Effort: Symmetrical - Additional Findings Active Medications Albuterol/Ipratropium (Duoneb) 3 ml IH [id number] PRN PRN Reason: Shortness Of Breath/Wheezing Stop: 10/12/18 06:01 Last Admin: 04/12/18 05:08 Dose: 3 ml Hydromorphone HCl (Dilaudid) 2 mg IVP Q2H PRN; Protocol PRN Reason: Breakthrough Pain Stop: 10/11/18 18:19 Last Admin: 04/13/18 06:21 Dose: 2 mg Piperacillin Sod/Tazobactam (Sod 3.375 gm/ Sodium Chloride) 100 mls @ 25 mls/hr IVPB Q8HR [place] Stop: 10/12/18 16:01 Last Infusion: 04/13/18 05:21 Dose: Infused Lorazepam (Ativan) 1 mg IVP Q6HR PRN PRN Reason: Agitation Stop: 10/12/18 16:44 Last Admin: 04/12/18 20:13 Dose: 1 mg Metoprolol Tartrate (Lopressor) 25 mg PO BID [facility] Stop: 10/11/18 21:01 Last Admin: 04/12/18 08:13 Dose: 25 mg Metoprolol Tartrate (Lopressor) 5 mg IVP Q6HR [place] Stop: 10/12/18 18:01 Last Admin: 04/13/18 06:16 Dose: 5 mg Ondansetron HCl (Zofran) 4 mg IVP Q6HR PRN PRN Reason: Nausea And Vomiting Stop: 10/11/18 14:52 Oxycodone HCl (Oxycodone Oral Conc) 5 mg SL Q4HR PRN; Protocol PRN Reason: mild to moderate pain Stop: 10/11/18 14:52 Oxycodone HCl (Oxycodone Oral Conc) 10 mg SL Q4HR PRN; Protocol PRN Reason: Severe Pain Stop: 10/11/18 14:52 Last Admin: 04/11/18 15:58 Dose: 10 mg Pantoprazole Sodium (Protonix) 40 mg IVP DAILY [facility] Stop: 10/11/18 15:01 Last Admin: 04/12/18 08:13 Dose: 40 mg Promethazine HCl (Phenergan) 12.5 mg IVP Q6HR PRN PRN Reason: Nausea And Vomiting Stop: 10/11/18 14:52 Anesthesia Assess/Plan ASA Score: 4, E Anesthetic Plan: General Monitoring Plan: Standard Monitors, A-Line (POSSIBLE), CVC (POSSIBLE) Recovery Plan: ICU (POSSIBLE POST OPERATIVE MECH VENT)
[2018-04-13] MEDS ORDERED: Furosemide 40 MG/4 ML VIAL IVP ONE ×2 (08:48→23:45)
[2018-04-13] MEDS ORDERED: CefOXitin 1,000 MG VIAL ONE (09:04)
[2018-04-13] MEDS ORDERED: Neostigmine Methylsulfate 3 MG/3 ML SYRINGE ONE (09:21)
[2018-04-13] MEDS ORDERED: Dexamethasone 4 MG/ML VIAL ONE (09:21)
[2018-04-13] MEDS ORDERED: Lidocaine -MPF 2% 2 ML VIAL ONE (09:21)
[2018-04-13] MEDS ORDERED: Ondansetron 4 MG/2 ML VIAL ONE (09:21)
[2018-04-13] MEDS ORDERED: Lidocaine -MPF 4% 5 ML AMPUL ONE (09:21)
[2018-04-13] MEDS ORDERED: *HR* FentaNYL (PF) 100 MCG/2 ML VIAL ONE ×3 (09:21→12:34)
[2018-04-13] MEDS ORDERED: *HR* Succinylcholine 200 MG/10 ML VIAL IVP ONE (09:21)
[2018-04-13] MEDS ORDERED: *HR* Rocuronium Bromide 50 MG/5 ML VIAL ONE ×2 (09:21→11:13)
[2018-04-13] MEDS ORDERED: *HR* Propofol 200 MG/20 ML VIAL IVP ONE ×2 (09:22→12:57)
[2018-04-13] MEDS ORDERED: *HR* Midazolam HCl 2 MG/2 ML VIAL ONE (09:22)
--- NOTE | 2018-04-13 12:11 | Operative Note ---
Date of procedure: 04/13/18 Pre-op diagnosis: Perforated diverticulitis Post-op diagnosis: other (#1 perforated diverticulitis #2 pelvic abscess) Procedure: #1 sigmoid colectomy with end colostomy (Zaldivar's procedure). #2 drainage of pelvic abscess Anesthesia: CYN Surgeon: Kunal Lambert Was there an certified nursing assistant instructor present: No Estimated blood loss (cc): 100 Specimen: Sigmoid colon Condition: stable Disposition: ICU Procedure in Detail: After informed consent the patients taking major operative suite placed supine position given adequate general endotracheal anesthesia. The abdomen was prepped and draped in sterile fashion utilizing ChloraPrep standard draping techniques. Timeout was taken and the patient was identified. Vertical midline incision from just above the umbilicus down to just above the pubis. The abdomen was entered. I aspirated 350 mL of purulent ascites and macy pus. There was some vegetable matter in the pelvis but very little stool. The patient had formed a phlegmon at the rectosigmoid junction. There was a collection of pus in this area and several small bowel loops were pulled into the phlegmon. All this was freed with blunt dissection. I suctioned all of the pus out of the pelvis and identified about a 1 cm perforation in the sigmoid colon. Bookwalter retractor was placed. I divided the peritoneal attachments on either side of the rectosigmoid mesentery. I divided the rectosigmoid with a contour stapler. I divided the descending colon sigmoid junction with a contour stapler. I divided the mesentery sigmoid colon with clamps and hemostatic ligatures. I placed 2 3-0 Prolene loop stitches through either end of the staple line on the rectal stump. I irrigated with copious amounts of antibiotic containing solution. Made a full mobilization of the white line of Toldt's and I divided the distal mesentery between the inferior mesenteric artery and the descending colon. This gave adequate mobilization for an end colostomy at about the level of the umbilicus I made an opening in the skin resecting a small te-moak then made an axial division of the rectus fascia large enough to admit 3 fingers. The colon was brought out through the opening in the anterior abdominal wall and secured. I irrigated the entire abdomen with copious amounts of antibiotic containing solution. I did not feel that the drain was indicated and pelvis. The midline was closed with looped 0 PDS and the skin was closed with interrupted Vicryl and skin clips. Class IV wound. I then matured the colostomy with interrupted 3-0 Vicryl. Blood supply to the colostomy was excellent. Next She tolerated the procedure well, however, due to her tachypnea and tachycardia prior to the procedure I recommended placement in the intensive care unit.
[2018-04-13] MEDS ORDERED: Ondansetron 4 MG/2 ML VIAL IVP PRN (12:20)
[2018-04-13] MEDS ORDERED: 0.9 % Sodium Chloride 1,000 ML IVC SCH (12:20)
[2018-04-13] MEDS ORDERED: *HR* Promethazine 25 MG/ML VIAL IVP PRN (12:20)
[2018-04-13] MEDS ORDERED: Furosemide 20 MG/2 ML VIAL IVP ONE (12:53)
[2018-04-13] MEDS ORDERED: Albuterol 2.5 MG/3 ML NEBULIZER ONE (12:54)
[2018-04-13] MEDS ORDERED: Racepinephrine Neb 0.5 ML VIAL IH ONE (13:07)
[2018-04-13] MEDS ORDERED: *HR* Metoprolol 5 MG/5 ML VIAL IVP ONE (13:17)
--- NOTE | 2018-04-13 13:39 | Anesthesia Procedures ---
Date of Encounter: 04/13/18 Time of Encounter: 12:20 Procedures: Anesthesia - Central Line Placement Right IJ Consent obtained: verbal consent, written consent (patient consented for cvc placement prior to OR. VERBALIZED UNDERSTANDING AxOx3 ) Patient placed on monitor/pulse ox: Yes (PATIENT UNDER GETA, ASA MONITORS ON, PATIENT VSS ) Sedation: Fentanyl (mcg): 100 (INDUCTION DRUGS ) MD prep: mask, gown, gloves Central line prep: Chlorhexidine scrub, sterile drapes applied, other (STERILE PROBE COVER FOR ULTRASOUND ) Ultrasound used for placement: Yes (CHEST X-RAY VERIFIED IN ICU + PLACEMENT ) Technique: Seldinger (GUIDE WIRE REMOVED- SUTURED IN PLACE ) Lumen Inserted: triple Size / Length: 7 Fr / 16 cm Post procedure: sutured in place, good blood return, all ports aspirated, flushed, capped, sterile dressing applied Post procedure x-ray: tip of catheter in good position, no pneumothorax seen, other (VERIFIED BY DR. DANIEL ) Patient tolerated procedure: well, no complications Complications: none Vitals: Vital Signs - Last 8 Hours Temp Pulse Resp BP Pulse Ox 04/13/18 09:00 96 04/13/18 06:57 99.4 F 121 18 129/60 96 Intake and Output 04/12/18 04/13/18 04/13/18 23:59 07:59 15:59 Intake Total 1100 / 1100 1100 / 1100 Output Total 0 / 0 800 / 800 2150 / 2150 Balance 1100 / 1100 300 / 300 -2150 / -2150 Intake: IV Fluids 1100 / 1100 1100 / 1100 0.9 % Sodium Chloride 1,000 ML 1000 / 1000 1000 / 1000 @ 125 mls/hr IVC .Q8H [facility] Rx#: [id number] Zosyn 3.375 GM In 0.9 % Sodium 100 / 100 100 / 100 Chloride (Mini-Bag +) 100 ML @ 25 mls/hr IVPB Q8HR [facility] Rx#: [id number] Oral 0 / 0 0 / 0 Output: Estimated Blood Loss 100 / 100 Urine Amount (Catheter) 1400 / 1400 Catheter 0 / 0 800 / 800 Gastric Drainage 650 / 650 Other: Blood Glucose* 138 134 Comments: REQUESTED PER DR. DANIEL FOR CONTINUED THERAPY
[2018-04-13] MEDS: *HR* HYDROmorphone (PF) 1 MG/ML SYRINGE IVP PRN ×2 (15:43→18:28)
[2018-04-13] MEDS: *HR* LORazepam 2 MG/ML VIAL IVP PRN (21:30)
[2018-04-13] MEDS: Ipratropium/Albuterol Neb 3 ML IH PRN (22:45)
[2018-04-13] MEDS ORDERED: Furosemide 40 MG in 0.9 % Sodium Chloride 50 ML IVPB ONE (23:36)
[2018-04-14] MEDS: *HR* Metoprolol 5 MG/5 ML VIAL IVP SCH ×5 (00:03→23:10)
[2018-04-14] MEDS: Piperacillin/Tazobactam 3.375 GM in 0.9 % Sodium Chloride Mini Bag 100 ML IVPB SCH ×4 (00:05→23:09)
[2018-04-14 00:12] LABS: ABG Base Excess 4 mEq/L (-2 to 3); ABG HCO3 29 mEq/L (21-27); ABG Oxygen Saturation 95 % (95-98); ABG PCO2 42 mmHg (35-45); ABG PH 7.44 pH Units (7.32-7.45); ABG PO2 73 mmHg (85-104); ABG TCO2 30 mEq/L (20-26)
[2018-04-14] MEDS: *HR* HYDROmorphone (PF) 1 MG/ML SYRINGE IVP PRN (00:59)
[2018-04-14 03:11] LABS: Basophils # 0.1 K/mcL (0.0-0.2); Basophils % 0.3 %; Hematocrit 38.5 % (35.3-44.9); Hemoglobin 12.2 g/dL (11.5-15.4); Immature Granulocytes % 2.4 % (0-4); Mean Corpuscular HGB Conc 31.7 g/dL (31.6-35.5); Mean Corpuscular Hemoglobin 34.2 pg (28.0-33.3); Mean Corpuscular Volume 107.8 fL (83.0-100.0); Mean Platelet Volume 11.6 fL (9.4-12.4); Monocytes # 1.4 K/mcL (0.0-1.3); Monocytes % 6.9 %; Neutrophils # 17.3 K/mcL (1.6-8.9); Platelet Count 294 K/mcL (140-400); Red Blood Count 3.57 M/mcL (3.82-4.97); Red Cell Distribution Width 13.2 % (11.5-14.5); Segmented Neutrophils % 85.4 %
[2018-04-14 03:30] LABS: BUN/Creatinine Ratio 25 (6-26); Blood Urea Nitrogen 20 mg/dL (6-20); Calcium 8.7 mg/dL (8.6-10.3); Carbon Dioxide 30 mEq/L (23-29); Chloride 105 mEq/L (98-107); Glucose 178 mg/dL (70-105); Osmolality,Calculated 309 (280-300); Potassium 3.3 mEq/L (3.5-5.1); Sodium 146 mEq/L (136-145); eGFR For Non-African Americans > 60 (> 60)
[2018-04-14] MEDS: Ipratropium/Albuterol Neb 3 ML IH PRN ×3 (03:54→15:18)
[2018-04-14] MEDS: *HR* Heparin 5,000 UNIT/ML VIAL SQ SCH ×2 (05:10→17:41)
--- NOTE | 2018-04-14 08:38 | General Surgery Progress Note ---
Date of Encounter: 04/14/18 Time of Encounter: 08:20 - Assessment and Plan (1) Perforation of sigmoid colon due to diverticulitis Current Visit: Yes Status: Acute Postoperative day 1 from Zaldivar's procedure. The abdomen is soft there are no bowel sounds yet. Ostomy is pink. (2) Tachycardia Current Visit: Yes Status: Acute Markedly improved with treatment of intra-abdominal sepsis and appropriate antibiotics (3) SIRS (systemic inflammatory response syndrome) Current Visit: Yes Status: Acute Tachypnea has markedly improved with aggressive diuresis and treatment of intra- abdominal sepsis. We will continue to watch her very closely for oxygenation status. Transient hypoxia requiring CPAP has resolved. She continues to use supplemental oxygen, however, is much improved Subjective Narrative: The patient is postoperative day 1 from Zaldivar's procedure for perforated diverticulitis. The patient had pelvic abscess as well as a dime-sized hole in the sigmoid colon. She underwent resection of the sigmoid colon with diverting end colostomy and rectal stump. This morning she states that her abdominal pain is much improved. She has incisional pain. The ostomy is pink. Last evening she had progressive tachypnea requiring an additional dose of Lasix. She had tremendous response with 1600 mL of urinary output today the potassium is somewhat low and this will be replaced. I will plan another dose of Lasix at noon today. Continue supportive care in the intensive care unit. Objective Vital Signs - Last 8 Hours Temp Pulse Resp BP Pulse Ox 04/14/18 08:00 115 20 131/85 96 04/14/18 07:29 97.2 F L 04/14/18 07:00 113 22 133/92 97 04/14/18 06:00 113 27 124/81 98 04/14/18 05:00 121 24 135/92 95 04/14/18 04:00 124 16 136/97 94 04/14/18 03:55 22 94 04/14/18 03:35 97.8 F 04/14/18 03:27 123 04/14/18 03:00 125 20 144/100 94 04/14/18 02:00 125 18 135/84 94 04/14/18 01:00 123 18 133/89 89 Intake and Output 04/13/18 04/14/18 04/14/18 23:59 07:59 15:59 Intake Total 100 / 100 100 / 100 Output Total 300 / 300 2175 / 2175 Balance -200 / -200 -2074 / -2074 Intake: IV Fluids 100 / 100 100 / 100 Zosyn 3.375 GM In 0.9 % Sodium 100 / 100 100 / 100 Chloride (Mini-Bag +) 100 ML @ 25 mls/hr IVPB Q8HR [facility] Rx#: [id number] Oral 0 / 0 Output: Urine 0 / 0 Stool 0 / 0 Catheter 250 / 250 1675 / 1675 Gastric Drainage 50 / 50 500 / 500 Other: Weight 90 kg Blood Glucose* 173 141 Patient Weight 04/14/18 23:59 Weight 90 kg - General physical appearance moderate pain, chronically ill - Respiratory normal expansion, clear to percussion, other (Tachypnea and labored breathing resolved) - Cardiovascular Cardiovascular exam: Present: RRR, no murmurs/rubs/gallops (mild tachycardia 112) - Abdomen Abdomen: Present: soft (Ostomy is pink. No bowel sounds.) - Incision Incision: Present: clean and dry - Neurologic normal coordination, normal sensation - Labs 04/14/18 03:00 04/14/18 03:00 Diabetes panel 04/14/18 Range/Units 03:00 Sodium 146 H (136-145) mEq/L Potassium 3.3 L (3.5-5.1) mEq/L Chloride 105 (98-107) mEq/L Carbon Dioxide 30 H (23-29) mEq/L BUN 20 (6-20) mg/dL Creatinine 0.79 (0.60-1.20) mg/dL Glucose 178 H (70-105) mg/dL Calcium 8.7 (8.6-10.3) mg/dL Calcium panel 04/14/18 Range/Units 03:00 Calcium 8.7 (8.6-10.3) mg/dL Pituitary panel 04/14/18 Range/Units 03:00 Sodium 146 H (136-145) mEq/L Potassium 3.3 L (3.5-5.1) mEq/L Chloride 105 (98-107) mEq/L Carbon Dioxide 30 H (23-29) mEq/L BUN 20 (6-20) mg/dL Creatinine 0.79 (0.60-1.20) mg/dL Glucose 178 H (70-105) mg/dL Calcium 8.7 (8.6-10.3) mg/dL Adrenal panel 04/14/18 Range/Units 03:00 Sodium 146 H (136-145) mEq/L Potassium 3.3 L (3.5-5.1) mEq/L Chloride 105 (98-107) mEq/L Carbon Dioxide 30 H (23-29) mEq/L BUN 20 (6-20) mg/dL Creatinine 0.79 (0.60-1.20) mg/dL Glucose 178 H (70-105) mg/dL Calcium 8.7 (8.6-10.3) mg/dL Consult Discharge Plan - Plan Referrals: Amber Skinner DO [Primary Care Provider] -
[2018-04-14] MEDS ORDERED: Pantoprazole 40 MG VIAL IVP SCH (09:00)
--- NOTE | 2018-04-14 09:45 | Anesthesia Evaluation Post Op ---
Date of Encounter: 04/14/18 Time of Encounter: 09:42 - Vital Signs Vital Signs: Vital Signs/O2 Sat/Glucose, Most Recent Temp Pulse Resp BP Pulse Ox 97.2 F L 115 16 131/85 99 04/14/18 07:29 04/14/18 08:00 04/14/18 09:28 04/14/18 08:00 04/14/18 09:28 Blood Glucose* 141 Notes: PATIENT REMAINS IN ICU. PATIENT'S VITAL SIGNS HAVE BEEN REVIEWED. PATIENT IS STABLE POSTOPERATIVELY AND HAS ADEQUATELY RECOVERED FROM ANESTHESIA. PATIENT IS DETERMINED TO HAVE STABLE AIRWAY PATENCY AND RESPIRATORY FUNCTION INCLUDING RESPIRATORY RATE AND OXYGEN SATURATION. IMPROVED RESPIRATORY STATUS SECONDARY DIURESIS OVERNIGHT. PATIENT HAS A STABLE HEART RATE, BLOOD PRESSURE AND ADEQUATE HYDRATION. PATIENTS MENTAL STATUS IS ACCEPTABLE. PATIENTS TEMPERATURE IS APPROPRIATE. PAIN AND NAUSEA ARE ADEQUATELY CONTROLLED.
[2018-04-14] MEDS: OXYCODONE Oral CONC 10 MG/0.5 ML ORAL.SYG SL PRN ×3 (10:33→19:02)
[2018-04-14] MEDS ORDERED: Furosemide 40 MG/4 ML VIAL IVP ONE (12:00)
[2018-04-14] MEDS: *HR* LORazepam 2 MG/ML VIAL IVP PRN (21:58)
[2018-04-15] MEDS: OXYCODONE Oral CONC 10 MG/0.5 ML ORAL.SYG SL PRN ×3 (02:04→18:08)
[2018-04-15 03:41] LABS: BUN/Creatinine Ratio 42 (6-26); Blood Urea Nitrogen 26 mg/dL (6-20); Calcium 9.3 mg/dL (8.6-10.3); Carbon Dioxide 35 mEq/L (23-29); Chloride 107 mEq/L (98-107); Glucose 153 mg/dL (70-105); Osmolality,Calculated 314 (280-300); Potassium 3.3 mEq/L (3.5-5.1); Sodium 148 mEq/L (136-145); eGFR For Non-African Americans > 60 (> 60)
[2018-04-15] MEDS: *HR* Metoprolol 5 MG/5 ML VIAL IVP SCH ×5 (05:21→23:15)
[2018-04-15] MEDS: *HR* Heparin 5,000 UNIT/ML VIAL SQ SCH ×2 (05:21→18:07)
[2018-04-15] MEDS ORDERED: *HR* Promethazine 25 MG/ML VIAL IVP PRN (07:41)
[2018-04-15] MEDS ORDERED: *HR* HYDROmorphone (PF) 1 MG/ML SYRINGE IVP PRN (07:41)
[2018-04-15] MEDS ORDERED: Ipratropium/Albuterol Neb 3 ML IH PRN (07:41)
--- NOTE | 2018-04-15 07:43 | General Surgery Progress Note ---
<So Wallis - Last Filed: 04/15/18 12:59> Date of Encounter: 04/15/18 Time of Encounter: 09:15 - Assessment and Plan (1) Perforation of sigmoid colon due to diverticulitis Current Visit: Yes Status: Acute POD#2 Hartmans procedure Abdomen is soft with bowel sounds present. Ostomy is pink. CT of the abdomen and pelvis without contrast on 04/11/2018 noted findings suspicious for a perforated sigmoid diverticulitis with multiple foci free air seen throughout the abdomen. There is a 2.4 x 2.5 cm possible small early abscess forming. There multiple loops of circumferential thickening around the mesenteric induration likely related to inflammatory enteritis. Pain control Continue IV antibiotics (zosyn day4) Continue Chowdhury catheter for accurate intake and output Remove NG tube Start clear liquid diet. G.I. and DVT prophylaxis We will continue to closely monitor. (2) Sepsis Current Visit: Yes Status: Acute Patient met SIRS criteria with increased heart rate, respiratory rate, and infection source. Her white blood cell count and lactic acid were normal. Tachypnea resolved. Tachycardia improving. Blood cultures drawn 04/11 x2 sets are NGTD. Much improved Cardiac monitoring Continue abx. Continue to closely monitor. Qualifiers: Qualified Code(s): A41.9 - Sepsis, unspecified organism (3) Tachycardia Current Visit: Yes Status: Acute Improved from 130s to 100s. Continue to closely monitor (4) Electrolyte abnormality Current Visit: Yes Status: Acute Potassium is low at 3.2. Phosphate is low at 2.6. Discontinue NG tube. Start clear liquid diet. Replace K and Phos IV. Recheck electrolytes tomorrow morning. Continue to monitor. (5) Smoking history Current Visit: Yes Status: Acute Aggressive pulmonary toileting incentive spirometry duonebs PRN Subjective Narrative: Patient seen and examined. No acute events overnight. Patient is resting comfortably in bed. Patient is postop day 2 from Hartmans procedure for perfora surinder diverticulitis. Patient indicates shes doing fine. Denies any pain, fever, shortness of breath, or nausea. Denies passing flatus. Denies any other complaints. Patient is clinically improved. Patient to be transferred from ICU to floor today. Objective Vital Signs - Last 8 Hours Temp Pulse Resp BP Pulse Ox 04/15/18 06:00 99 14 129/78 96 04/15/18 05:00 104 12 139/89 93 04/15/18 04:00 107 12 138/95 96 04/15/18 03:44 97.5 F L 04/15/18 03:21 103 04/15/18 03:00 103 12 140/93 96 04/15/18 02:00 104 12 136/94 96 04/15/18 01:00 105 12 132/86 96 04/15/18 00:00 106 12 108/60 96 Intake and Output 04/14/18 04/14/18 04/15/18 15:59 23:59 07:59 Intake Total 325 / 325 100 / 100 235 / 235 Output Total 5 / 192 1050 / 1050 300 / 300 Balance -1600 / -1600 -950 / -950 -65 / -65 Intake: IV Fluids 300 / 300 100 / 100 100 / 100 Zosyn 3.375 GM In 0.9 % Sodium 100 / 100 100 / 100 100 / 100 Chloride (Mini-Bag +) 100 ML @ 25 mls/hr IVPB Q8HR [facility] Rx#: [id number] Potassium Chloride 10 mEq/100mL 200 / 200 10 meq In 100 ml @ 100 mls/hr IVPB Q1H [facility] Rx#:[id number] Oral 25 / 25 0 / 0 135 / 135 Output: Stool 0 / 0 0 / 0 Catheter 1924 / 1924 350 / 350 150 / 150 Gastric Drainage 0 / 0 700 / 700 150 / 150 Other: Weight 90.2 kg Blood Glucose* 139 124 Patient Weight 04/15/18 23:59 Weight 90.2 kg - Additional Exam VITAL SIGNS: Reviewed. See [facility] GENERAL: In no apparent distress. HEENT: Normocephalic, atraumatic, pupils are equal and reactive, extraocular motions intact, oral mucosa is pink and dry, there is no neck adenopathy or JVD noted. CHEST/RESPIRATORY: The thorax is free from signs of trauma. Lung sounds: mild diffuse end-expiratory wheezing, normal respiratory effort CARDIAC: Regular rate and rhythm. Normal S1 and S2, without murmurs, gallops, or rubs. VASCULAR: No Edema. ABDOMEN: Soft, expected postoperative tenderness, bowel sounds present, nondistended INCISION: Surgical incisionis clean, dry, and intact. There are no signs of cellulitis or infection noted. Colostomy site is clean, pink and intact. No fecal contents in colostomy bag. MUSCULOSKELETAL: Good range of motion of all major joints. Extremities without clubbing, cyanosis or edema. NEUROLOGIC EXAM: Alert and oriented x 3. Speech normal. Follows commands. PSYCHIATRIC: Mood normal. SKIN: No rash or lesions. - Labs 04/15/18 09:10 04/15/18 09:10 Diabetes panel 04/15/18 Range/Units 03:15 Sodium 148 H (136-145) mEq/L Potassium 3.3 L (3.5-5.1) mEq/L Chloride 107 (98-107) mEq/L Carbon Dioxide 35 H (23-29) mEq/L BUN 26 H (6-20) mg/dL Creatinine 0.62 (0.60-1.20) mg/dL Glucose 153 H (70-105) mg/dL Calcium 9.3 (8.6-10.3) mg/dL Calcium panel 04/15/18 Range/Units 03:15 Calcium 9.3 (8.6-10.3) mg/dL Pituitary panel 04/15/18 Range/Units 03:15 Sodium 148 H (136-145) mEq/L Potassium 3.3 L (3.5-5.1) mEq/L Chloride 107 (98-107) mEq/L Carbon Dioxide 35 H (23-29) mEq/L BUN 26 H (6-20) mg/dL Creatinine 0.62 (0.60-1.20) mg/dL Glucose 153 H (70-105) mg/dL Calcium 9.3 (8.6-10.3) mg/dL Adrenal panel 04/15/18 Range/Units 03:15 Sodium 148 H (136-145) mEq/L Potassium 3.3 L (3.5-5.1) mEq/L Chloride 107 (98-107) mEq/L Carbon Dioxide 35 H (23-29) mEq/L BUN 26 H (6-20) mg/dL Creatinine 0.62 (0.60-1.20) mg/dL Glucose 153 H (70-105) mg/dL Calcium 9.3 (8.6-10.3) mg/dL Consult Discharge Plan - Plan Referrals: Amber Skinner DO [Primary Care Provider] - <Kunal Lambert - Last Filed: 02/12/19 08:03> Date of Encounter: 04/15/18 - Assessment and Plan (1) Perforation of sigmoid colon due to diverticulitis Current Visit: Yes Status: Acute (2) Tachycardia Current Visit: Yes Status: Acute (3) SIRS (systemic inflammatory response syndrome) Current Visit: Yes Status: Acute Objective Vital Signs - Last 8 Hours Temp Pulse Resp BP Pulse Ox 04/16/18 04:23 98.3 F 102 16 154/95 93 Intake and Output 04/15/18 04/16/18 04/16/18 23:59 07:59 15:59 Intake Total 500 / 500 200 / 200 Output Total 0 / 0 0 / 0 Balance 500 / 500 200 / 200 Intake: IV Fluids 200 / 200 Zosyn 3.375 GM In 0.9 % Sodium 100 / 100 Chloride (Mini-Bag +) 100 ML @ 25 mls/hr IVPB Q8HR [facility] Rx#: [id number] Potassium Chloride 10 mEq/100mL 100 / 100 10 meq In 100 ml @ 100 mls/hr IVPB Q1H [facility] Rx#:[id number] Oral 300 / 300 200 / 200 Output: Urine 0 / 0 0 / 0 Other: # Voids 1 Weight 90.5 kg Patient Weight 04/16/18 23:59 Weight 90.5 kg - Labs 04/16/18 06:03 04/16/18 06:03 Diabetes panel 04/15/18 04/16/18 Range/Units 09:10 06:03 Sodium 150 H 145 (136-145) mEq/L Potassium 3.2 L 3.4 L (3.5-5.1) mEq/L Chloride 106 107 (98-107) mEq/L Carbon Dioxide 36 H 29 (23-29) mEq/L BUN 27 H 27 H (6-20) mg/dL Creatinine 0.53 L 0.55 L (0.60-1.20) mg/dL Glucose 140 H 150 H (70-105) mg/dL Calcium 9.3 9.3 (8.6-10.3) mg/dL Calcium panel 04/15/18 04/16/18 Range/Units 09:10 06:03 Calcium 9.3 9.3 (8.6-10.3) mg/dL Phosphorus 2.6 L 4.2 (2.7-4.5) mg/dL Pituitary panel 04/15/18 04/16/18 Range/Units 09:10 06:03 Sodium 150 H 145 (136-145) mEq/L Potassium 3.2 L 3.4 L (3.5-5.1) mEq/L Chloride 106 107 (98-107) mEq/L Carbon Dioxide 36 H 29 (23-29) mEq/L BUN 27 H 27 H (6-20) mg/dL Creatinine 0.53 L 0.55 L (0.60-1.20) mg/dL Glucose 140 H 150 H (70-105) mg/dL Calcium 9.3 9.3 (8.6-10.3) mg/dL Adrenal panel 04/15/18 04/16/18 Range/Units 09:10 06:03 Sodium 150 H 145 (136-145) mEq/L Potassium 3.2 L 3.4 L (3.5-5.1) mEq/L Chloride 106 107 (98-107) mEq/L Carbon Dioxide 36 H 29 (23-29) mEq/L BUN 27 H 27 H (6-20) mg/dL Creatinine 0.53 L 0.55 L (0.60-1.20) mg/dL Glucose 140 H 150 H (70-105) mg/dL Calcium 9.3 9.3 (8.6-10.3) mg/dL - Attending Attestation I have personally performed a face to face evaluation on this patient. I have reviewed and agree with the care plan. History and Exam by me shows: The patient is seen and evaluated with the clinical nurse practitioner and resident. I reviewed the documentation and agree with the content. The patient is tolerating low volume liquids. The ostomy is pink her abdomen is soft with few bowel sounds. Continue antibiotic therapy. Await bowel function Kunal Lambert MD FACS
[2018-04-15] MEDS: Pantoprazole 40 MG VIAL IVP SCH (08:13)
[2018-04-15] MEDS: Piperacillin/Tazobactam 3.375 GM in 0.9 % Sodium Chloride Mini Bag 100 ML IVPB SCH ×3 (08:13→23:15)
[2018-04-15 09:19] LABS: Basophils # 0.1 K/mcL (0.0-0.2); Basophils % 0.5 %; Eosinophils % 0.2 %; Hemoglobin 11.5 g/dL (11.5-15.4); Immature Granulocytes % 3.1 % (0-4); Lymphocytes # 1.6 K/mcL (0.6-4.6); Lymphocytes % 11.7 %; Mean Corpuscular HGB Conc 31.1 g/dL (31.6-35.5); Mean Corpuscular Hemoglobin 33.4 pg (28.0-33.3); Mean Corpuscular Volume 107.6 fL (83.0-100.0); Mean Platelet Volume 11.5 fL (9.4-12.4); Monocytes # 1.1 K/mcL (0.0-1.3); Monocytes % 8.1 %; Neutrophils # 10.5 K/mcL (1.6-8.9); Platelet Count 313 K/mcL (140-400); Red Blood Count 3.44 M/mcL (3.82-4.97); Red Cell Distribution Width 13.2 % (11.5-14.5); Segmented Neutrophils % 76.4 %
[2018-04-15 09:41] LABS: BUN/Creatinine Ratio 51 (6-26); Blood Urea Nitrogen 27 mg/dL (6-20); Calcium 9.3 mg/dL (8.6-10.3); Carbon Dioxide 36 mEq/L (23-29); Chloride 106 mEq/L (98-107); Glucose 140 mg/dL (70-105); Magnesium 2.4 mg/dL (1.6-2.6); Osmolality,Calculated 317 (280-300); Phosphorous 2.6 mg/dL (2.7-4.5); Potassium 3.2 mEq/L (3.5-5.1); Sodium 150 mEq/L (136-145); eGFR For Non-African Americans > 60 (> 60)
[2018-04-15] MEDS: 0.9 % Sodium Chloride 1,000 ML IVC SCH (11:20)
[2018-04-15] MEDS: *HR* LORazepam 2 MG/ML VIAL IVP PRN ×2 (14:38→21:03)
[2018-04-16] MEDS: OXYCODONE Oral CONC 10 MG/0.5 ML ORAL.SYG SL PRN ×2 (00:37→08:44)
[2018-04-16] MEDS: *HR* Heparin 5,000 UNIT/ML VIAL SQ SCH ×2 (06:06→18:29)
[2018-04-16] MEDS: *HR* Metoprolol 5 MG/5 ML VIAL IVP SCH (06:06)
[2018-04-16 06:17] LABS: Basophils # 0.2 K/mcL (0.0-0.2); Basophils % 0.9 %; Eosinophils # 0.1 K/mcL (0.0-0.6); Eosinophils % 0.6 %; Hematocrit 38.1 % (35.3-44.9); Hemoglobin 12.1 g/dL (11.5-15.4); Immature Granulocytes % 4.4 % (0-4); Lymphocytes # 1.9 K/mcL (0.6-4.6); Lymphocytes % 10.8 %; Mean Corpuscular HGB Conc 31.8 g/dL (31.6-35.5); Mean Platelet Volume 11.8 fL (9.4-12.4); Monocytes % 5.8 %; Neutrophils # 13.5 K/mcL (1.6-8.9); Platelet Count 366 K/mcL (140-400); Red Blood Count 3.56 M/mcL (3.82-4.97); Segmented Neutrophils % 77.5 %
[2018-04-16 06:35] LABS: BUN/Creatinine Ratio 49 (6-26); Blood Urea Nitrogen 27 mg/dL (6-20); Calcium 9.3 mg/dL (8.6-10.3); Carbon Dioxide 29 mEq/L (23-29); Chloride 107 mEq/L (98-107); Glucose 150 mg/dL (70-105); Magnesium 2.2 mg/dL (1.6-2.6); Osmolality,Calculated 308 (280-300); Phosphorous 4.2 mg/dL (2.7-4.5); Potassium 3.4 mEq/L (3.5-5.1); Sodium 145 mEq/L (136-145); eGFR For Non-African Americans > 60 (> 60)
--- NOTE | 2018-04-16 08:08 | General Surgery Progress Note ---
<So Wallis - Last Filed: 04/16/18 13:48> Date of Encounter: 04/16/18 Time of Encounter: 06:25 - Assessment and Plan (1) Perforation of sigmoid colon due to diverticulitis Current Visit: Yes Status: Acute POD#3 Hartmans procedure Abdomen is soft with bowel sounds present. Ostomy is pink. CT of the abdomen and pelvis without contrast on 04/11/2018 noted findings suspicious for a perforated sigmoid diverticulitis with multiple foci free air seen throughout the abdomen. There is a 2.4 x 2.5 cm possible small early abscess forming. There multiple loops of circumferential thickening around the mesenteric induration likely related to inflammatory enteritis. Pain control Continue IV antibiotics (zosyn day5) Continue Martinez catheter for accurate intake and output Tolerated clear liquid diet. Advance to full liquid. G.I. and DVT prophylaxis We will continue to closely monitor. (2) Sepsis Current Visit: Yes Status: Acute Patient met SIRS criteria with increased heart rate, respiratory rate, and infection source. Her white blood cell count and lactic acid were normal. Tachypnea resolved. Tachycardia improving. Blood cultures drawn 04/11 x2 sets are NGTD. Cardiac monitoring Continue to closely monitor. Qualifiers: Qualified Code(s): A41.9 - Sepsis, unspecified organism (3) Leukocytosis Current Visit: Yes Status: Acute Today, WBC is elevated at 17.4. Yesterday, WBC was 13.8. Will check UA due to martinez catheter. Martinez no longer present check bladder scan. Will check CXR due to wheezing. Continue zosyn. Start diflucan. If WBC elevates further, will order blood culture. Continue to monitor. Qualifiers: Qualified Code(s): D72.829 - Elevated white blood cell count, unspecified (4) Tachycardia Current Visit: Yes Status: Acute Improved from 130s to 100s. Continue to closely monitor (5) Electrolyte abnormality Current Visit: Yes Status: Acute Today, potassium is improved to 3.4. Yesterday, potassium was 3.2. Phosphate level is now normal. Replace K IV. Recheck electrolytes tomorrow morning. Continue to monitor. (6) Smoking history Current Visit: Yes Status: Acute Aggressive pulmonary toileting incentive spirometry duonebs PRN Subjective Narrative: Patient seen and examined. No acute events overnight. Patient is resting comfortably in bed. Patient is postop day 3 from Hartmans procedure for perfo rated diverticulitis. Patient indicates shes doing fine. Denies any complaints. Passing flatus, denies bowel movement. Denies pain, fever, shortness of breath, or nausea. Tolerated clear liquid diet well yesterday; today, patient asking for more. Objective Vital Signs - Last 8 Hours Temp Pulse Resp BP Pulse Ox 04/16/18 08:04 97.6 F 96 15 147/93 94 04/16/18 04:23 98.3 F 102 16 154/95 93 Intake and Output 04/15/18 04/16/18 04/16/18 23:59 07:59 15:59 Intake Total 500 / 500 200 / 200 0 / 0 Output Total 0 / 0 0 / 0 0 / 0 Balance 500 / 500 200 / 200 0 / 0 Intake: IV Fluids 200 / 200 Zosyn 3.375 GM In 0.9 % Sodium 100 / 100 Chloride (Mini-Bag +) 100 ML @ 25 mls/hr IVPB Q8HR [facility] Rx#: [id number] Potassium Chloride 10 mEq/100mL 100 / 100 10 meq In 100 ml @ 100 mls/hr IVPB Q1H [facility] Rx#:[id number] Oral 300 / 300 200 / 200 0 / 0 Output: Urine 0 / 0 0 / 0 0 / 0 Stool 0 / 0 Other: # Voids 1 Weight 90.5 kg Patient Weight 04/16/18 23:59 Weight 90.5 kg - Additional Exam VITAL SIGNS: Reviewed. See [facility] GENERAL: In no apparent distress. HEENT: Normocephalic, atraumatic, pupils are equal and reactive, extraocular motions intact, oral mucosa is pink and moist, there is no neck adenopathy or JVD noted. CHEST/RESPIRATORY: The thorax is free from signs of trauma. Lung sounds: mild diffuse end-expiratory wheezing, normal respiratory effort CARDIAC: Regular rate and rhythm. Normal S1 and S2, without murmurs, gallops, or rubs. VASCULAR: No Edema. ABDOMEN: Soft, expected postoperative tenderness, bowel sounds present, nondistended INCISION: Surgical incisionis clean, dry, and intact. There are no signs of cellulitis or infection noted. Colostomy site is clean, pink and intact. No fecal contents in colostomy bag. MUSCULOSKELETAL: Good range of motion of all major joints. Extremities without clubbing, cyanosis or edema. NEUROLOGIC EXAM: Alert and oriented x 3. Speech normal. Follows commands. PSYCHIATRIC: Mood normal. SKIN: No rash or lesions. - Labs 04/16/18 06:03 04/16/18 06:03 Diabetes panel 04/15/18 04/16/18 Range/Units 09:10 06:03 Sodium 150 H 145 (136-145) mEq/L Potassium 3.2 L 3.4 L (3.5-5.1) mEq/L Chloride 106 107 (98-107) mEq/L Carbon Dioxide 36 H 29 (23-29) mEq/L BUN 27 H 27 H (6-20) mg/dL Creatinine 0.53 L 0.55 L (0.60-1.20) mg/dL Glucose 140 H 150 H (70-105) mg/dL Calcium 9.3 9.3 (8.6-10.3) mg/dL Calcium panel 04/15/18 04/16/18 Range/Units 09:10 06:03 Calcium 9.3 9.3 (8.6-10.3) mg/dL Phosphorus 2.6 L 4.2 (2.7-4.5) mg/dL Pituitary panel 04/15/18 04/16/18 Range/Units 09:10 06:03 Sodium 150 H 145 (136-145) mEq/L Potassium 3.2 L 3.4 L (3.5-5.1) mEq/L Chloride 106 107 (98-107) mEq/L Carbon Dioxide 36 H 29 (23-29) mEq/L BUN 27 H 27 H (6-20) mg/dL Creatinine 0.53 L 0.55 L (0.60-1.20) mg/dL Glucose 140 H 150 H (70-105) mg/dL Calcium 9.3 9.3 (8.6-10.3) mg/dL Adrenal panel 04/15/18 04/16/18 Range/Units 09:10 06:03 Sodium 150 H 145 (136-145) mEq/L Potassium 3.2 L 3.4 L (3.5-5.1) mEq/L Chloride 106 107 (98-107) mEq/L Carbon Dioxide 36 H 29 (23-29) mEq/L BUN 27 H 27 H (6-20) mg/dL Creatinine 0.53 L 0.55 L (0.60-1.20) mg/dL Glucose 140 H 150 H (70-105) mg/dL Calcium 9.3 9.3 (8.6-10.3) mg/dL Consult Discharge Plan - Plan Referrals: Amber Skinner DO [Primary Care Provider] - <Kunal Lambert - Last Filed: 04/17/18 15:31> Date of Encounter: 04/16/18 - Assessment and Plan (1) Perforation of sigmoid colon due to diverticulitis Current Visit: Yes Status: Acute (2) Tachycardia Current Visit: Yes Status: Acute (3) SIRS (systemic inflammatory response syndrome) Current Visit: Yes Status: Acute Objective Vital Signs - Last 8 Hours Temp Pulse Resp BP Pulse Ox 04/17/18 14:12 98.1 F 93 16 135/84 90 04/17/18 11:16 18 92 04/17/18 09:45 97.6 F 88 15 142/90 93 04/17/18 07:36 18 90 Intake and Output 04/16/18 04/17/18 04/17/18 23:59 07:59 15:59 Intake Total 100 / 100 700 / 700 Output Total 0 / 0 0 / 0 Balance 100 / 100 700 / 700 Intake: IV Fluids 100 / 100 100 / 100 Zosyn 3.375 GM In 0.9 % Sodium 100 / 100 100 / 100 Chloride (Mini-Bag +) 100 ML @ 25 mls/hr IVPB Q8HR [facility] Rx#: [id number] Oral 0 / 0 600 / 600 Output: Urine 0 / 0 0 / 0 Other: # Voids 1 1 # Bowel Movements 0 0 - Labs 04/17/18 02:43 04/17/18 02:43 Diabetes panel 04/17/18 Range/Units 02:43 Sodium 140 (136-145) mEq/L Potassium 3.5 (3.5-5.1) mEq/L Chloride 101 (98-107) mEq/L Carbon Dioxide 27 (23-29) mEq/L BUN 26 H (6-20) mg/dL Creatinine 0.57 L (0.60-1.20) mg/dL Glucose 125 H (70-105) mg/dL Calcium 9.0 (8.6-10.3) mg/dL Calcium panel 04/17/18 Range/Units 02:43 Calcium 9.0 (8.6-10.3) mg/dL Phosphorus 4.8 H (2.7-4.5) mg/dL Pituitary panel 04/17/18 Range/Units 02:43 Sodium 140 (136-145) mEq/L Potassium 3.5 (3.5-5.1) mEq/L Chloride 101 (98-107) mEq/L Carbon Dioxide 27 (23-29) mEq/L BUN 26 H (6-20) mg/dL Creatinine 0.57 L (0.60-1.20) mg/dL Glucose 125 H (70-105) mg/dL Calcium 9.0 (8.6-10.3) mg/dL Adrenal panel 04/17/18 Range/Units 02:43 Sodium 140 (136-145) mEq/L Potassium 3.5 (3.5-5.1) mEq/L Chloride 101 (98-107) mEq/L Carbon Dioxide 27 (23-29) mEq/L BUN 26 H (6-20) mg/dL Creatinine 0.57 L (0.60-1.20) mg/dL Glucose 125 H (70-105) mg/dL Calcium 9.0 (8.6-10.3) mg/dL - Attending Attestation I examined this patient and my medical decision-making was reviewed with the Resident Physician. I agree with the documented findings, disposition and treatment plan as described except to the extent set forth below. The patient is seen and evaluated on morning rounds with the resident. She looks and feels much better. White blood cell count slightly elevated today. We will obtain a PA and lateral chest x-ray as well as urinalysis. Continue supportive care and antibiotic therapy. Kunal Lambert MD FACS
[2018-04-16] MEDS: Ondansetron 4 MG/2 ML VIAL IVP PRN (08:43)
[2018-04-16] MEDS: Piperacillin/Tazobactam 3.375 GM in 0.9 % Sodium Chloride Mini Bag 100 ML IVPB SCH ×3 (08:43→23:45)
[2018-04-16] MEDS: Pantoprazole 40 MG VIAL IVP SCH ×2 (08:43→22:33)
[2018-04-16] MEDS ORDERED: *HR* Metoprolol 5 MG/5 ML VIAL IVP PRN (09:52)
[2018-04-16] MEDS: Ipratropium/Albuterol Neb 3 ML IH PRN (10:25)
[2018-04-16] MEDS ORDERED: Ipratropium/Albuterol Neb 3 ML IH SCH (10:30)
[2018-04-16] MEDS ORDERED: Ipratropium/Albuterol Neb 3 ML ONE (10:50)
[2018-04-16 11:04] LABS: Bilirubin,Urine Small (Negative); Blood,Urine Negative (Negative); Clarity,Urine Clear (Clear); Color,Urine Dark Yellow (Yellow); Glucose,Urine (UA) Normal (Normal); Ketones,Urine Trace mg/dL (Negative); Leukocyte Esterase,Urine Negative (Negative); Nitrite,Urine Negative (Negative); Protein,Urine Trace mg/dL (Neg-Trace); Specific Gravity,Urine > 1.030 (1.010-1.025); Urobilinogen,Urine Normal (Normal)
[2018-04-16 11:25] LABS: Bacteria,Urine None Seen per hpf (None-Few); Hyaline Casts,Urine None Seen per lpf (None-Few); RBC,Urine 0-3 per hpf (0-3); Squamous Epithelial Cell,Urine Many per lpf (None-Few); WBC,Urine 0-3 per hpf (0-3)
[2018-04-16] MEDS: Fluconazole 200 MG/100 ML 200 MG/100 ML BAG IVPB SCH (11:39)
[2018-04-16] MEDS: Metoclopramide 10 MG/2 ML VIAL IVP SCH ×3 (11:41→23:46)
[2018-04-16] MEDS: Ketorolac 15 MG/ML VIAL IVP SCH ×3 (11:41→23:46)
[2018-04-16 11:43] LABS: Mucus,Urine Many (Few)
[2018-04-16] MEDS: *HR* LORazepam 2 MG/ML VIAL IVP PRN ×2 (11:46→18:28)
[2018-04-16] MEDS: Ipratropium/Albuterol Neb 3 ML IH SCH ×2 (15:56→19:47)
[2018-04-17 03:31] LABS: Basophils # 0.1 K/mcL (0.0-0.2); Basophils % 0.6 %; Eosinophils # 0.2 K/mcL (0.0-0.6); Eosinophils % 0.9 %; Hematocrit 38.1 % (35.3-44.9); Immature Granulocytes % 4.3 % (0-4); Lymphocytes # 2.7 K/mcL (0.6-4.6); Lymphocytes % 13.6 %; Mean Corpuscular HGB Conc 31.5 g/dL (31.6-35.5); Mean Corpuscular Hemoglobin 33.5 pg (28.0-33.3); Mean Corpuscular Volume 106.4 fL (83.0-100.0); Mean Platelet Volume 12.1 fL (9.4-12.4); Monocytes % 5.1 %; Neutrophils # 14.9 K/mcL (1.6-8.9); Platelet Count 383 K/mcL (140-400); Red Blood Count 3.58 M/mcL (3.82-4.97); Red Cell Distribution Width 12.8 % (11.5-14.5); Segmented Neutrophils % 75.5 %
[2018-04-17] MEDS: Ipratropium/Albuterol Neb 3 ML IH SCH ×6 (03:33→19:55)
[2018-04-17 03:40] LABS: BUN/Creatinine Ratio 46 (6-26); Blood Urea Nitrogen 26 mg/dL (6-20); Carbon Dioxide 27 mEq/L (23-29); Chloride 101 mEq/L (98-107); Glucose 125 mg/dL (70-105); Osmolality,Calculated 296 (280-300); Phosphorous 4.8 mg/dL (2.7-4.5); Potassium 3.5 mEq/L (3.5-5.1); Sodium 140 mEq/L (136-145); eGFR For Non-African Americans > 60 (> 60)
--- NOTE | 2018-04-17 05:20 | Event Note ---
Date of Encounter: 04/16/18 Time of Encounter: 22:04 Notified by patient's nurse CHIKI Garcia that patient was stating she was having heartburn and requesting Prilosec or something similar. Nurse was instructed that this was a surgical pt. and that surgery needed to be called to place this order.
[2018-04-17] MEDS: Metoclopramide 10 MG/2 ML VIAL IVP SCH ×2 (05:32→12:21)
[2018-04-17] MEDS: Ketorolac 15 MG/ML VIAL IVP SCH ×3 (05:32→16:56)
[2018-04-17] MEDS: *HR* Heparin 5,000 UNIT/ML VIAL SQ SCH ×2 (05:33→16:56)
[2018-04-17] MEDS: Ondansetron 4 MG/2 ML VIAL IVP PRN (05:33)
[2018-04-17] MEDS: Piperacillin/Tazobactam 3.375 GM in 0.9 % Sodium Chloride Mini Bag 100 ML IVPB SCH ×2 (08:13→16:57)
[2018-04-17] MEDS: Pantoprazole 40 MG VIAL IVP SCH ×2 (08:13→16:56)
[2018-04-17] MEDS: Fluconazole 200 MG/100 ML 200 MG/100 ML BAG IVPB SCH (08:14)
--- NOTE | 2018-04-17 09:31 | General Surgery Progress Note ---
<So Wallis - Last Filed: 04/17/18 14:27> Date of Encounter: 04/17/18 Time of Encounter: 06:50 - Assessment and Plan (1) Perforation of sigmoid colon due to diverticulitis Current Visit: Yes Status: Acute POD#4 Hartmans procedure Abdomen is soft with bowel sounds present. Ostomy is pink. CT of the abdomen and pelvis without contrast on 04/11/2018 noted findings suspicious for a perforated sigmoid diverticulitis with multiple foci free air seen throughout the abdomen. There is a 2.4 x 2.5 cm possible small early abscess forming. There multiple loops of circumferential thickening around the mesenteric induration likely related to inflammatory enteritis. Pain control G.I. and DVT prophylaxis Up to chair and ambulate Full liquid diet Continue IV antibiotics (zosyn day6) We will continue to closely monitor. (2) Sepsis Current Visit: Yes Status: Acute Patient met SIRS criteria with increased heart rate, respiratory rate, and infection source. Her white blood cell count and lactic acid were normal. Tachycardia and tachypnea resolved. Blood cultures drawn 04/11 x2 sets are NGTD. Cardiac monitoring Continue to closely monitor. Qualifiers: Qualified Code(s): A41.9 - Sepsis, unspecified organism (3) Leukocytosis Current Visit: Yes Status: Acute WBC uptrending. Today, WBC is elevated at 19.7. Yesterday, WBC was 17.4. Possibly secondary to postop ileus. UA is negative for UTI. CXR shows discoid changes. Check CT abd/pelvis with GI contrast. Continue zosyn and diflucan. Continue to monitor. Qualifiers: Qualified Code(s): D72.829 - Elevated white blood cell count, unspecified (4) Tachycardia Current Visit: Yes Status: Acute Resolved. Continue to closely monitor (5) Electrolyte abnormality Current Visit: Yes Status: Acute Resolved. Continue to monitor. (6) Smoking history Current Visit: Yes Status: Acute Aggressive pulmonary toileting incentive spirometry duonebs PRN Subjective Narrative: Patient seen and examined. No acute events overnight. Patient is resting comfortably in bed. Patient is postop day 4 from Hartmans procedure for perforated diverticulitis. Patient states she feels slow and sluggish. States she feels weak. States shes belching. States she also passed gas into her ostom y bag. States she vomited earlier due to heartburn. Denies nausea and heartburn at this time. Denies fever, abdominal pain, dysuria, shortness of breath. Denies any other complaints. Objective Vital Signs - Last 8 Hours Temp Pulse Resp BP Pulse Ox 04/17/18 07:36 18 90 04/17/18 05:58 97.5 F L 94 16 144/75 90 04/17/18 03:44 98.3 F 90 14 143/90 100 04/17/18 03:35 18 91 Intake and Output 04/16/18 04/17/18 04/17/18 23:59 07:59 15:59 Intake Total 100 / 100 700 / 700 Output Total 0 / 0 0 / 0 Balance 100 / 100 700 / 700 Intake: IV Fluids 100 / 100 100 / 100 Zosyn 3.375 GM In 0.9 % Sodium 100 / 100 100 / 100 Chloride (Mini-Bag +) 100 ML @ 25 mls/hr IVPB Q8HR [facility] Rx#: [id number] Oral 0 / 0 600 / 600 Output: Urine 0 / 0 0 / 0 Other: # Voids 1 # Bowel Movements 0 0 - Additional Exam VITAL SIGNS: Reviewed. See [facility] GENERAL: In no apparent distress. HEENT: Normocephalic, atraumatic, pupils are equal and reactive, extraocular motions intact, there is no JVD noted. CHEST/RESPIRATORY: The thorax is free from signs of trauma. Lung sounds: clear to auscultation, normal respiratory effort CARDIAC: Regular rate and rhythm. Normal S1 and S2, without murmurs, gallops, or rubs. VASCULAR: No Edema. ABDOMEN: Soft, expected postoperative tenderness, bowel sounds present, nondistended INCISION: Surgical incisionis clean, dry, and intact. There are no signs of cellulitis or infection noted. Colostomy site is clean, pink and intact. No fecal contents in colostomy bag. MUSCULOSKELETAL: Good range of motion of all major joints. Extremities without clubbing, cyanosis or edema. NEUROLOGIC EXAM: Alert and oriented x 3. Speech normal. Follows commands. PSYCHIATRIC: Mood normal. SKIN: No rash or lesions. - Labs 04/17/18 02:43 04/17/18 02:43 Diabetes panel 04/17/18 Range/Units 02:43 Sodium 140 (136-145) mEq/L Potassium 3.5 (3.5-5.1) mEq/L Chloride 101 (98-107) mEq/L Carbon Dioxide 27 (23-29) mEq/L BUN 26 H (6-20) mg/dL Creatinine 0.57 L (0.60-1.20) mg/dL Glucose 125 H (70-105) mg/dL Calcium 9.0 (8.6-10.3) mg/dL Calcium panel 04/17/18 Range/Units 02:43 Calcium 9.0 (8.6-10.3) mg/dL Phosphorus 4.8 H (2.7-4.5) mg/dL Pituitary panel 04/17/18 Range/Units 02:43 Sodium 140 (136-145) mEq/L Potassium 3.5 (3.5-5.1) mEq/L Chloride 101 (98-107) mEq/L Carbon Dioxide 27 (23-29) mEq/L BUN 26 H (6-20) mg/dL Creatinine 0.57 L (0.60-1.20) mg/dL Glucose 125 H (70-105) mg/dL Calcium 9.0 (8.6-10.3) mg/dL Adrenal panel 04/17/18 Range/Units 02:43 Sodium 140 (136-145) mEq/L Potassium 3.5 (3.5-5.1) mEq/L Chloride 101 (98-107) mEq/L Carbon Dioxide 27 (23-29) mEq/L BUN 26 H (6-20) mg/dL Creatinine 0.57 L (0.60-1.20) mg/dL Glucose 125 H (70-105) mg/dL Calcium 9.0 (8.6-10.3) mg/dL Consult Discharge Plan - Plan Referrals: Amber Skinner DO [Primary Care Provider] - <Kunal Lambert - Last Filed: 04/17/18 15:22> Date of Encounter: 04/17/18 - Assessment and Plan (1) Perforation of sigmoid colon due to diverticulitis Current Visit: Yes Status: Acute (2) Tachycardia Current Visit: Yes Status: Acute (3) SIRS (systemic inflammatory response syndrome) Current Visit: Yes Status: Acute Objective Vital Signs - Last 8 Hours Temp Pulse Resp BP Pulse Ox 04/17/18 14:12 98.1 F 93 16 135/84 90 04/17/18 11:16 18 92 04/17/18 09:45 97.6 F 88 15 142/90 93 04/17/18 07:36 18 90 Intake and Output 04/16/18 04/17/18 04/17/18 23:59 07:59 15:59 Intake Total 100 / 100 700 / 700 Output Total 0 / 0 0 / 0 Balance 100 / 100 700 / 700 Intake: IV Fluids 100 / 100 100 / 100 Zosyn 3.375 GM In 0.9 % Sodium 100 / 100 100 / 100 Chloride (Mini-Bag +) 100 ML @ 25 mls/hr IVPB Q8HR [facility] Rx#: [id number] Oral 0 / 0 600 / 600 Output: Urine 0 / 0 0 / 0 Other: # Voids 1 1 # Bowel Movements 0 0 - Labs 04/17/18 02:43 04/17/18 02:43 Diabetes panel 04/17/18 Range/Units 02:43 Sodium 140 (136-145) mEq/L Potassium 3.5 (3.5-5.1) mEq/L Chloride 101 (98-107) mEq/L Carbon Dioxide 27 (23-29) mEq/L BUN 26 H (6-20) mg/dL Creatinine 0.57 L (0.60-1.20) mg/dL Glucose 125 H (70-105) mg/dL Calcium 9.0 (8.6-10.3) mg/dL Calcium panel 04/17/18 Range/Units 02:43 Calcium 9.0 (8.6-10.3) mg/dL Phosphorus 4.8 H (2.7-4.5) mg/dL Pituitary panel 04/17/18 Range/Units 02:43 Sodium 140 (136-145) mEq/L Potassium 3.5 (3.5-5.1) mEq/L Chloride 101 (98-107) mEq/L Carbon Dioxide 27 (23-29) mEq/L BUN 26 H (6-20) mg/dL Creatinine 0.57 L (0.60-1.20) mg/dL Glucose 125 H (70-105) mg/dL Calcium 9.0 (8.6-10.3) mg/dL Adrenal panel 04/17/18 Range/Units 02:43 Sodium 140 (136-145) mEq/L Potassium 3.5 (3.5-5.1) mEq/L Chloride 101 (98-107) mEq/L Carbon Dioxide 27 (23-29) mEq/L BUN 26 H (6-20) mg/dL Creatinine 0.57 L (0.60-1.20) mg/dL Glucose 125 H (70-105) mg/dL Calcium 9.0 (8.6-10.3) mg/dL - Attending Attestation I examined this patient and my medical decision-making was reviewed with the Resident Physician. I agree with the documented findings, disposition and treatment plan as described except to the extent set forth below. The patient is seen and evaluated on morning rounds with resident. The patient's abdomen is somewhat distended and her white blood cell count is elevated at 19,000. I decided early in the morning to perform CAT scan with GI contrast. I personally reviewed the CAT scan. Findings are consistent with postoperative ileus with no evidence of abscess or fluid collection. She will get a nasogastric tube for any nausea or vomiting. She does have bowel sounds. Later in the day she did have ostomy output. She is started on Reglan. Kunal Lambert MD FACS
[2018-04-17] MEDS: *HR* LORazepam 2 MG/ML VIAL IVP PRN (10:16)
[2018-04-17] MEDS: OXYCODONE Oral CONC 10 MG/0.5 ML ORAL.SYG SL PRN (12:21)
[2018-04-17] MEDS ORDERED: Metoclopramide 10 MG/2 ML VIAL IVP SCH (14:16)
[2018-04-17] MEDS: Metoclopramide 20 MG in 0.9 % Sodium Chloride 50 ML IVPB SCH (18:33)
[2018-04-18] MEDS: Ketorolac 15 MG/ML VIAL IVP SCH ×4 (00:06→18:49)
[2018-04-18] MEDS: Piperacillin/Tazobactam 3.375 GM in 0.9 % Sodium Chloride Mini Bag 100 ML IVPB SCH ×3 (00:08→17:50)
[2018-04-18] MEDS: Ipratropium/Albuterol Neb 3 ML IH SCH ×7 (00:17→23:10)
[2018-04-18] MEDS: Metoclopramide 20 MG in 0.9 % Sodium Chloride 50 ML IVPB SCH ×3 (02:36→18:56)
[2018-04-18 03:41] LABS: Basophils # 0.1 K/mcL (0.0-0.2); Basophils % 0.4 %; Eosinophils # 0.3 K/mcL (0.0-0.6); Eosinophils % 1.5 %; Hematocrit 34.9 % (35.3-44.9); Hemoglobin 11.3 g/dL (11.5-15.4); Immature Granulocytes % 3.2 % (0-4); Lymphocytes # 1.6 K/mcL (0.6-4.6); Lymphocytes % 8.8 %; Mean Corpuscular HGB Conc 32.4 g/dL (31.6-35.5); Mean Corpuscular Hemoglobin 33.8 pg (28.0-33.3); Mean Corpuscular Volume 104.5 fL (83.0-100.0); Mean Platelet Volume 12.2 fL (9.4-12.4); Monocytes # 0.8 K/mcL (0.0-1.3); Monocytes % 4.4 %; Platelet Count 341 K/mcL (140-400); Red Blood Count 3.34 M/mcL (3.82-4.97); Red Cell Distribution Width 12.7 % (11.5-14.5); Segmented Neutrophils % 81.7 %
[2018-04-18 04:01] LABS: BUN/Creatinine Ratio 33 (6-26); Blood Urea Nitrogen 18 mg/dL (6-20); Calcium 8.7 mg/dL (8.6-10.3); Carbon Dioxide 26 mEq/L (23-29); Chloride 101 mEq/L (98-107); Glucose 113 mg/dL (70-105); Osmolality,Calculated 285 (280-300); Phosphorous 3.2 mg/dL (2.7-4.5); Potassium 3.4 mEq/L (3.5-5.1); Sodium 136 mEq/L (136-145); eGFR For Non-African Americans > 60 (> 60)
[2018-04-18] MEDS: *HR* Heparin 5,000 UNIT/ML VIAL SQ SCH ×2 (05:46→17:50)
[2018-04-18] MEDS: Pantoprazole 40 MG VIAL IVP SCH ×2 (08:09→18:49)
[2018-04-18] MEDS: *HR* LORazepam 2 MG/ML VIAL IVP PRN ×2 (08:09→20:56)
[2018-04-18] MEDS: Fluconazole 200 MG/100 ML 200 MG/100 ML BAG IVPB SCH (08:10)
[2018-04-18] MEDS ORDERED: Furosemide 40 MG/4 ML VIAL IVP ONE (08:18)
[2018-04-18] MEDS ORDERED: Potassium Chloride 20 MEQ, Lidocaine 1% 2 ML in D5% in Water 250 ML IVPB ONE (08:19)
--- NOTE | 2018-04-18 08:47 | General Surgery Progress Note ---
<Danna Daugherty - Last Filed: 04/18/18 08:43> Date of Encounter: 04/18/18 Time of Encounter: 07:00 - Assessment and Plan (1) Perforation of sigmoid colon due to diverticulitis Status: Acute Date of procedure: 04/13/18 Pre-op diagnosis: Perforated diverticulitis Post-op diagnosis: other (#1 perforated diverticulitis #2 pelvic abscess) Procedure: #1 sigmoid colectomy with end colostomy (Zaldivar's procedure). #2 drainage of pelvic abscess Anesthesia: GOPIA Surgeon: Kunal Lambert POD #5 as above. Pathology noted perforated diverticulitis and serositus. She is having output per ostomy. He nausea has improved. she reports feeling "much better" today. CT 04/17/2018 was without evidence of abscess or perforation. Plan: continue supportive care and discomfort management continue IV antibiotics (Zosyn and fluconazole) continue G.I. and DVT prophylaxis ambulate as tolerated may shower out of bed to chair TID (please do not present meal trays in the bed. Patient should consume meal trays in the chair.) D/c planning in the next 24-48 hours pending clinical course Repeat am labs ostomy care/teaching consult to for [facility] referral for ostomy care (2) SIRS (systemic inflammatory response syndrome) Status: Resolved (3) Smoking history Status: Acute smoking cessation encouraged aggressive pulm toileting during admission and at d.c. (4) Tachycardia Status: Resolved (5) Fluid overload Status: Acute 3L+ this admission, BL Lower lobe crackles Will treat with 40 mg Lasix x1 Qualifiers: Hypervolemia type: transfusion-associated Qualified Code(s): E87.71 - Transfusion associated circulatory overload (6) Hypokalemia Status: Acute Replete lites as indicated continue to monitor Subjective Patient reports: no new complaints, still having pain, pain is less, tolerating liquids well, voiding w/o difficulty, flatus, bowel movement, afebrile Objective Vital Signs - Last 8 Hours Temp Pulse Resp BP Pulse Ox 04/18/18 07:17 16 95 04/18/18 06:51 97.3 F L 88 18 127/82 92 04/18/18 04:04 18 91 04/18/18 03:57 99.0 F 94 13 150/93 95 Intake and Output 04/17/18 04/18/18 04/18/18 23:59 07:59 15:59 Intake Total 274 / 274 154 / 154 Output Total 100 / 100 Balance 174 / 174 154 / 154 Intake: IV Fluids 154 / 154 154 / 154 Reglan 20 MG In 0.9 % Sodium 54 / 54 54 / 54 Chloride 50 ML @ 108 mls/hr IVPB Q8H [place] Rx#:[id number] Zosyn 3.375 GM In 0.9 % Sodium 100 / 100 100 / 100 Chloride (Mini-Bag +) 100 ML @ 25 mls/hr IVPB Q8HR [place] Rx#: [id number] Oral 120 / 120 Output: Stool 100 / 100 Other: Meal Dinner Percent of Meal Consumed 100% Stool Consistency liquid Stool Color Brown Weight 93.2 kg Patient Weight 04/18/18 23:59 Weight 93.2 kg - General physical appearance no distress, moderate pain (mild-moderate) - Eyes normal ocular movement - ENT normal nares, normal mucosa, atraumatic, normocephalic - Neck Neck exam: trachea midline - Respiratory other (decreeased, course BL bases) - Cardiovascular Cardiovascular exam: Present: RRR - Abdomen Abdomen: Present: bowel sounds present, soft, tender (expected postoperative) Hernia: none - Incision Incision: Present: clean and dry, intact - Integumentary no rash - Neurologic normal sensation - Musculoskeletal normal posture - Psychiatric oriented to time, oriented to person, oriented to place, speech is normal, memory intact - Labs 04/18/18 02:48 04/18/18 02:48 Diabetes panel 04/18/18 Range/Units 02:48 Sodium 136 (136-145) mEq/L Potassium 3.4 L (3.5-5.1) mEq/L Chloride 101 (98-107) mEq/L Carbon Dioxide 26 (23-29) mEq/L BUN 18 (6-20) mg/dL Creatinine 0.55 L (0.60-1.20) mg/dL Glucose 113 H (70-105) mg/dL Calcium 8.7 (8.6-10.3) mg/dL Calcium panel 04/18/18 Range/Units 02:48 Calcium 8.7 (8.6-10.3) mg/dL Phosphorus 3.2 (2.7-4.5) mg/dL Pituitary panel 04/18/18 Range/Units 02:48 Sodium 136 (136-145) mEq/L Potassium 3.4 L (3.5-5.1) mEq/L Chloride 101 (98-107) mEq/L Carbon Dioxide 26 (23-29) mEq/L BUN 18 (6-20) mg/dL Creatinine 0.55 L (0.60-1.20) mg/dL Glucose 113 H (70-105) mg/dL Calcium 8.7 (8.6-10.3) mg/dL Adrenal panel 04/18/18 Range/Units 02:48 Sodium 136 (136-145) mEq/L Potassium 3.4 L (3.5-5.1) mEq/L Chloride 101 (98-107) mEq/L Carbon Dioxide 26 (23-29) mEq/L BUN 18 (6-20) mg/dL Creatinine 0.55 L (0.60-1.20) mg/dL Glucose 113 H (70-105) mg/dL Calcium 8.7 (8.6-10.3) mg/dL Consult Discharge Plan - Plan Instructions: Colostomy Care (DC), Colostomy Creation (GEN) Additional Instructions: General Surgical Discharge Instructions 1. No pushing, pulling, or lifting greater than 15 lbs for 6 weeks (depending upon procedure). 2. You may shower beginning today, but no tub baths, soaking, or swimming for 2 weeks. 3. You may resume driving when you are off narcotics and are safe to react in a car. 4. Take ibuprofen every 8 hours for discomfort. If this does not relieve discomfort, you may take the as needed Percocet. Take narcotics as directed. Do not take more narcotics then directed and do not share your narcotics with any other person. Do not drink alcohol while on narcotics. 5. Take stool softeners (Colace) or a water based laxative (Miralax) while taking narcotics. You may hold for loose stools. 6. Report any fevers greater than 100.5F, increase abdominal discomfort, drainage that looks like pus, increased redness or pain at the surgical site, or any vomiting. 7. Report any pain in the calves, shortness of breath, or rapid heartbeat. 8. Follow-up in the office as directed. 9. If you were prescribed antibiotics, do not stop them without talking to your provider. Referrals: Kunal Lambert MD [Partnered Physician] - 05/07/18 10:10 am Amber Skinner DO [Primary Care Provider] - 05/06/18 3:30 pm Prescriptions: Ondansetron ODT [Zofran ODT] 4 mg SL Q6HR PRN #15 tab.rapdis PRN Reason: Nausea RX: OxyCODONE/APAP 5/325 [Percocet 5/325 MG] 1 each PO Q6HR PRN 7 Days #28 tablet PRN Reason: Breakthrough Pain RX: Ciprofloxacin [Cipro] 500 mg PO BID 10 Days #20 tablet Docusate [Colace] 100 mg PO BID #30 capsule RX: Ibuprofen 800 mg PO Q8H #42 tablet metroNIDAZOLE [Flagyl] 500 mg PO TID 10 Days #30 tablet <Kunal Lambert - Last Filed: 04/19/18 15:02> Date of Encounter: 04/18/18 - Assessment and Plan (1) Perforation of sigmoid colon due to diverticulitis Status: Acute (2) Tachycardia Status: Resolved (3) SIRS (systemic inflammatory response syndrome) Status: Resolved Objective Intake and Output 04/18/18 04/19/18 04/19/18 23:59 07:59 15:59 Intake Total 514 / 514 340 / 340 Output Total 150 / 150 0 / 0 Balance 364 / 364 340 / 340 Intake: IV Fluids 154 / 154 100 / 100 Reglan 20 MG In 0.9 % Sodium 54 / 54 Chloride 50 ML @ 108 mls/hr IVPB Q8H [place] Rx#:[id number] Zosyn 3.375 GM In 0.9 % Sodium 100 / 100 100 / 100 Chloride (Mini-Bag +) 100 ML @ 25 mls/hr IVPB Q8HR [place] Rx#: [id number] Oral 360 / 360 240 / 240 Output: Urine 0 / 0 Stool 150 / 150 Other: Meal Dinner Percent of Meal Consumed 10% # Voids 2 # Bowel Movements 0 - Labs 04/19/18 02:43 04/19/18 02:43 Diabetes panel 04/19/18 Range/Units 02:43 Sodium 137 (136-145) mEq/L Potassium 3.2 L (3.5-5.1) mEq/L Chloride 100 (98-107) mEq/L Carbon Dioxide 27 (23-29) mEq/L BUN 13 (6-20) mg/dL Creatinine 0.56 L (0.60-1.20) mg/dL Glucose 138 H (70-105) mg/dL Calcium 8.8 (8.6-10.3) mg/dL Calcium panel 04/19/18 Range/Units 02:43 Calcium 8.8 (8.6-10.3) mg/dL Pituitary panel 04/19/18 Range/Units 02:43 Sodium 137 (136-145) mEq/L Potassium 3.2 L (3.5-5.1) mEq/L Chloride 100 (98-107) mEq/L Carbon Dioxide 27 (23-29) mEq/L BUN 13 (6-20) mg/dL Creatinine 0.56 L (0.60-1.20) mg/dL Glucose 138 H (70-105) mg/dL Calcium 8.8 (8.6-10.3) mg/dL Adrenal panel 04/19/18 Range/Units 02:43 Sodium 137 (136-145) mEq/L Potassium 3.2 L (3.5-5.1) mEq/L Chloride 100 (98-107) mEq/L Carbon Dioxide 27 (23-29) mEq/L BUN 13 (6-20) mg/dL Creatinine 0.56 L (0.60-1.20) mg/dL Glucose 138 H (70-105) mg/dL Calcium 8.8 (8.6-10.3) mg/dL - Attending Attestation I have personally performed a face to face evaluation on this patient. I have reviewed and agree with the care plan. History and Exam by me shows: The patient is seen and evaluated on morning rounds with the clinical nurse practitioner. She feels better and looks better. The ostomy is functioning normally. Her white blood cell count is trending downward. Continue current therapy. Discharge when clinically stable Kunal Lambert MD FACS
[2018-04-19] MEDS: Piperacillin/Tazobactam 3.375 GM in 0.9 % Sodium Chloride Mini Bag 100 ML IVPB SCH ×2 (01:21→06:20)
[2018-04-19] MEDS: Ketorolac 15 MG/ML VIAL IVP SCH ×2 (01:22→06:22)
[2018-04-19] MEDS: Metoclopramide 20 MG in 0.9 % Sodium Chloride 50 ML IVPB SCH ×2 (01:22→10:31)
[2018-04-19 03:29] LABS: Basophils # 0.1 K/mcL (0.0-0.2); Basophils % 0.7 %; Eosinophils # 0.3 K/mcL (0.0-0.6); Eosinophils % 1.8 %; Hematocrit 38.3 % (35.3-44.9); Hemoglobin 12.1 g/dL (11.5-15.4); Immature Granulocytes % 4.4 % (0-4); Lymphocytes # 1.7 K/mcL (0.6-4.6); Lymphocytes % 10.6 %; Mean Corpuscular HGB Conc 31.6 g/dL (31.6-35.5); Mean Corpuscular Hemoglobin 33.2 pg (28.0-33.3); Mean Corpuscular Volume 104.9 fL (83.0-100.0); Mean Platelet Volume 12.3 fL (9.4-12.4); Monocytes % 6.1 %; Neutrophils # 11.9 K/mcL (1.6-8.9); Platelet Count 374 K/mcL (140-400); Red Blood Count 3.65 M/mcL (3.82-4.97); Red Cell Distribution Width 12.8 % (11.5-14.5); Segmented Neutrophils % 76.4 %
[2018-04-19 03:45] LABS: BUN/Creatinine Ratio 23 (6-26); Blood Urea Nitrogen 13 mg/dL (6-20); Calcium 8.8 mg/dL (8.6-10.3); Carbon Dioxide 27 mEq/L (23-29); Chloride 100 mEq/L (98-107); Glucose 138 mg/dL (70-105); Osmolality,Calculated 286 (280-300); Potassium 3.2 mEq/L (3.5-5.1); Sodium 137 mEq/L (136-145); eGFR For Non-African Americans > 60 (> 60)
[2018-04-19] MEDS: Ipratropium/Albuterol Neb 3 ML IH SCH ×3 (03:52→10:51)
[2018-04-19] MEDS: Pantoprazole 40 MG VIAL IVP SCH (06:22)
[2018-04-19] MEDS: *HR* Heparin 5,000 UNIT/ML VIAL SQ SCH (06:22)
[2018-04-19 06:50] VITALS: BP 132/85
--- NOTE | 2018-04-19 09:34 | Discharge Summary ---
<So Wallis - Last Filed: 04/19/18 09:28> Date of Encounter: 04/19/18 Time of Encounter: 07:25 - Discharge Diagnosis (1) Perforation of sigmoid colon due to diverticulitis Priority: Primary Status: Acute (2) Sepsis Priority: Primary Status: Acute Qualifiers: Qualified Code(s): A41.9 - Sepsis, unspecified organism (3) Leukocytosis Priority: Primary Status: Acute Qualifiers: Qualified Code(s): D72.829 - Elevated white blood cell count, unspecified (4) Tachycardia Priority: Primary Status: Resolved (5) Electrolyte abnormality Priority: Primary Status: Acute (6) Smoking history Priority: Secondary Status: Acute General Surgery Exam Initial Vital Signs Temp Pulse Resp BP Pulse Ox 97.4 F L 117 20 135/80 95 04/11/18 08:56 04/11/18 08:56 04/11/18 08:56 04/11/18 08:56 04/11/18 08:56 - Additional Findings VITAL SIGNS: Reviewed. See [facility] GENERAL: In no apparent distress. HEENT: Normocephalic, atraumatic, pupils are equal and reactive, extraocular motions intact, there is no JVD noted. CHEST/RESPIRATORY: The thorax is free from signs of trauma. Lung sounds: clear to auscultation, normal respiratory effort CARDIAC: Regular rate and rhythm. Normal S1 and S2, without murmurs, gallops, or rubs. VASCULAR: No Edema. ABDOMEN: Soft, nontender, bowel sounds present INCISION: Surgical incisionis clean, dry, and intact. There are no signs of cellulitis or infection noted; trace serosanguinous drainage. Colostomy site is clean, pink and intact. There are fecal contents in colostomy bag. MUSCULOSKELETAL: Good range of motion of all major joints. Extremities without clubbing, cyanosis or edema. NEUROLOGIC EXAM: Alert and oriented x 3. Speech normal. Follows commands. PSYCHIATRIC: Mood normal. SKIN: No rash or lesions. - Hospital Course Hospital course: Ms. Gomez is a 57 year old female presented to the emergency department on 04/11/2018 following a 6 day history of left lower abdominal and groin pain. She had a CT of the abdomen and pelvis which noted findings suspicious for perforated diverticulitis. Patient went to OR on 04/13/09 for sigmoid colectomy with end colostomy and drainage of pelvic abscess. Today, patient is standing and washing her hands. Patient states she feels still weak but better. States she feels gassy. Denies nausea, abdominal pain, fever. Denies any other complaints. Patient asks when she can go home. Patient is clinically improved and OK for discharge. - Time Spent with Patient Total time spent providing and/or coordinating discharge services: Greater than 30 minutes (42 minutes) - Discharge Medications Prescriptions: Ondansetron ODT [Zofran ODT] 4 mg SL Q6HR PRN #15 tab.rapdis PRN Reason: Nausea RX: OxyCODONE/APAP 5/325 [Percocet 5/325 MG] 1 each PO Q6HR PRN 7 Days #28 tablet PRN Reason: Breakthrough Pain RX: Ciprofloxacin [Cipro] 500 mg PO BID 10 Days #20 tablet Docusate [Colace] 100 mg PO BID #30 capsule RX: Ibuprofen 800 mg PO Q8H #42 tablet metroNIDAZOLE [Flagyl] 500 mg PO TID 10 Days #30 tablet Home Medications: RX: Omeprazole [PriLOSEC] 20 mg PO DAILY 08/15/15 [History] RX: Atenolol [Tenormin] 25 mg PO BID 04/12/18 [History] RX: Cyanocobalamin (Vitamin B-12) [Vitamin B12] 1,000 mcg PO DAILY 04/12/18 [History] RX: Ezetimibe 10 mg PO DAILY 04/12/18 [History] RX: Ibuprofen [Ibu-200] 400 mg PO Q2H PRN 04/12/18 [History] RX: Mv,Ca,Min/Folic Acid/Vit K1 [One-A-Day Women's 50 Plus Tab] 1 tab PO DAILY 04/12/18 [History] RX: Tamsulosin [Flomax] 0.4 mg PO DAILY 04/12/18 [History] RX: Varenicline Tartrate [Chantix] 1 mg PO BID 04/12/18 [History] Docusate [Colace] 100 mg PO BID #30 capsule 04/19/18 [Rx] Ondansetron ODT [Zofran ODT] 4 mg SL Q6HR PRN #15 tab.rapdis 04/19/18 [Rx] RX: Ciprofloxacin [Cipro] 500 mg PO BID 10 Days #20 tablet 04/19/18 [Rx] RX: Ibuprofen 800 mg PO Q8H #42 tablet 04/19/18 [Rx] RX: OxyCODONE/APAP 5/325 [Percocet 5/325 MG] 1 each PO Q6HR PRN 7 Days #28 tablet 04/19/18 [Rx] metroNIDAZOLE [Flagyl] 500 mg PO TID 10 Days #30 tablet 04/19/18 [Rx] Allergies/Adverse Reactions: Allergy/AdvReac Type Severity Reaction Status Date / Time Cefaclor [From Ceclor] AdvReac Hives Verified 07/19/15 12:27 Date of admission: 04/11/18 15:06 Primary care physician: Amber Skinner DO Consults: 04/15/18 07:39 Consult to Wound Care [CONS] Routine Reason for Consult: New ostomy consult Time Notified: 07:39 Call Completed: Yes 04/16/18 10:16 Consult to Respiratory Therapy [CONS] Stat Reason for Consult: wheezing; elevated WBC Aggressive pulmonary toileting Accupap and Acapella Call Completed: No 04/18/18 08:19 Consult to Flatwork Supervisor [CONS] Routine Reason for SW Consult: C for new ostomy; likely d/c 04/19/18 Discharging clinician: Kunal Lambert Anticipated date of discharge: 04/19/18 Labs on day of discharge: Labs from last 24 hours 04/19/18 04/19/18 02:43 02:43 WBC 15.6 H RBC 3.65 L Hgb 12.1 Hct 38.3 MCV 104.9 H MCH 33.2 MCHC 31.6 RDW 12.8 Plt Count 374 MPV 12.3 Immature Gran % 4.4 H Seg Neutrophils % 76.4 Lymphocytes % 10.6 Monocytes % 6.1 Eosinophils % 1.8 Basophils % 0.7 Neutrophils # 11.9 H Lymphocytes # 1.7 Monocytes # 1.0 Eosinophils # 0.3 Basophils # 0.1 Sodium 137 Potassium 3.2 L Chloride 100 Carbon Dioxide 27 BUN 13 Creatinine 0.56 L Est GFR ( Amer) > 60 Est GFR (Non-Af Amer) > 60 BUN/Creatinine Ratio 23 Glucose 138 H Calculated Osmolality 286 Calcium 8.8 - Impressions ITS Impressions Abdomen/Pelvis CT 04/11/18 11:01 IMPRESSION: Findings suspicious for perforated sigmoid diverticulitis, with multiple foci of free air seen throughout the patient's abdomen and pelvis including adjacent to the sigmoid colon, and extending up into the subdiaphragmatic region bilaterally. There is also a focal area of gas and fluid seen immediately adjacent to the sigmoid colon and focal pericolonic inflammatory changes and sigmoid wall thickening suggestive of a possible small early abscess measuring 2.4 x 2.5 cm. Multiple small bowel loops demonstrate circumferential thickening seen around this area of mesenteric induration, which may be related to inflammatory enteritis secondary to the underlying infectious process. The 1st 2 impressions were discussed with Krystle Douglas in the emergency department at 10:05 a.m. on 04/11/2018. D/ / Justyn Prescott MD / Justyn Prescott MD Interpreting Provider: Justyn Prescott MD Chest X-Ray 04/13/18 13:17 IMPRESSION: Right internal jugular line in satisfactory position with tip in the SVC/RA junction. No evidence of pneumothorax. Enteric tube with proximal port near the level of the GE junction. This should be advanced prior to use. Mild diffuse airspace disease in both lungs may represent mild pulmonary edema or atypical pneumonia. D/ / 04/13/2018 13:39:54 Salinas Cook MD / ever Interpreting Provider: Salinas Cook MD Chest X-Ray 04/16/18 09:41 IMPRESSION: 1. Bibasilar opacification is seen, which appear similar to the prior exam. 2. There may be a small right pleural effusion. D/ / Alek Heath MD / Alek Heath MD Interpreting Provider: Alek Heath MD Abdomen/Pelvis CT 04/17/18 10:15 IMPRESSION: 1. Findings concerning for partial small bowel obstruction, proximal to mid small bowel, likely related to adhesions; however, the appearance could be related to severe focal adynamic ileus. Gastric decompression via NG tube is a consideration for treatment. 2. Postsurgical sequela from partial distal colon resection with left lower quadrant colostomy. No pneumoperitoneum or loculated fluid collection to suggest anastomotic dehiscence or abscess. 3. Hepatic steatosis and mild hepatomegaly. 4. Small volume bilateral pleural effusion, right greater than left, with right basilar consolidation, possible pneumonia, and linear band of subsegmental atelectasis left lung base. D/ / Syd Washington / Syd Washington Interpreting Provider: Syd Washington - Patient Status Disposition: Home Health Service Condition: Fair - Discharge Instructions Instructions: Colostomy Care (DC), Colostomy Creation (GEN) Follow Up With: Kunal Lambert MD [Partnered Physician] - 05/07/18 10:10 am Amber Skinner DO [Primary Care Provider] - 05/06/18 3:30 pm Additional Instructions: General Surgical Discharge Instructions 1. No pushing, pulling, or lifting greater than 15 lbs for 6 weeks (depending upon procedure). 2. You may shower beginning today, but no tub baths, soaking, or swimming for 2 weeks. 3. You may resume driving when you are off narcotics and are safe to react in a car. 4. Take ibuprofen every 8 hours for discomfort. If this does not relieve discomfort, you may take the as needed Percocet. Take narcotics as directed. Do not take more narcotics then directed and do not share your narcotics with an y other person. Do not drink alcohol while on narcotics. 5. Take stool softeners (Colace) or a water based laxative (Miralax) while taking narcotics. You may hold for loose stools. 6. Report any fevers greater than 100.5F, increase abdominal discomfort, drainage that looks like pus, increased redness or pain at the surgical site, or any vomiting. 7. Report any pain in the calves, shortness of breath, or rapid heartbeat. 8. Follow-up in the office as directed. 9. If you were prescribed antibiotics, do not stop them without talking to your provider. <Kunal Lambert - Last Filed: 04/19/18 14:56> Date of Encounter: 04/19/18 - Discharge Diagnosis (1) Perforation of sigmoid colon due to diverticulitis Status: Acute (2) Tachycardia Status: Resolved (3) SIRS (systemic inflammatory response syndrome) Status: Resolved General Surgery Exam Initial Vital Signs Temp Pulse Resp BP Pulse Ox 97.4 F L 117 20 135/80 95 04/11/18 08:56 04/11/18 08:56 04/11/18 08:56 04/11/18 08:56 04/11/18 08:56 - Hospital Course Hospital course: Ms. Gomez is a 57 year old female - Time Spent with Patient Total time spent providing and/or coordinating discharge services: Date of admission: 04/11/18 15:06 Primary care physician: Amber Skinner DO Consults: 04/15/18 07:39 Consult to Wound Care [CONS] Routine Reason for Consult: New ostomy consult Time Notified: 07:39 Call Completed: Yes 04/16/18 10:16 Consult to Respiratory Therapy [CONS] Stat Reason for Consult: wheezing; elevated WBC Aggressive pulmonary toileting Accupap and Acapella Call Completed: No 04/18/18 08:19 Consult to Flatwork Supervisor [CONS] Routine Reason for SW Consult: HHC for new ostomy; likely d/c 04/19/18 Labs on day of discharge: Labs from last 24 hours 04/19/18 04/19/18 02:43 02:43 WBC 15.6 H RBC 3.65 L Hgb 12.1 Hct 38.3 MCV 104.9 H MCH 33.2 MCHC 31.6 RDW 12.8 Plt Count 374 MPV 12.3 Immature Gran % 4.4 H Seg Neutrophils % 76.4 Lymphocytes % 10.6 Monocytes % 6.1 Eosinophils % 1.8 Basophils % 0.7 Neutrophils # 11.9 H Lymphocytes # 1.7 Monocytes # 1.0 Eosinophils # 0.3 Basophils # 0.1 Sodium 137 Potassium 3.2 L Chloride 100 Carbon Dioxide 27 BUN 13 Creatinine 0.56 L Est GFR ( Amer) > 60 Est GFR (Non-Af Amer) > 60 BUN/Creatinine Ratio 23 Glucose 138 H Calculated Osmolality 286 Calcium 8.8 - Impressions ITS Impressions Abdomen/Pelvis CT 04/11/18 11:01 IMPRESSION: Findings suspicious for perforated sigmoid diverticulitis, with multiple foci of free air seen throughout the patient's abdomen and pelvis including adjacent to the sigmoid colon, and extending up into the subdiaphragmatic region bilaterally. There is also a focal area of gas and fluid seen immediately adjacent to the sigmoid colon and focal pericolonic inflammatory changes and sigmoid wall thickening suggestive of a possible small early abscess measuring 2.4 x 2.5 cm. Multiple small bowel loops demonstrate circumferential thickening seen around this area of mesenteric induration, which may be related to inflammatory enteritis secondary to the underlying infectious process. The 1st 2 impressions were discussed with Krystle Douglas in the emergency department at 10:05 a.m. on 04/11/2018. D/ / Justyn Prescott MD / Justyn Prescott MD Interpreting Provider: Justyn Prescott MD Chest X-Ray 04/13/18 13:17 IMPRESSION: Right internal jugular line in satisfactory position with tip in the SVC/RA junction. No evidence of pneumothorax. Enteric tube with proximal port near the level of the GE junction. This should be advanced prior to use. Mild diffuse airspace disease in both lungs may represent mild pulmonary edema or atypical pneumonia. D/ / 04/13/2018 13:39:54 Salinas Cook MD / ever Interpreting Provider: Salinas Cook MD Chest X-Ray 04/16/18 09:41 IMPRESSION: 1. Bibasilar opacification is seen, which appear similar to the prior exam. 2. There may be a small right pleural effusion. D/ / Alek Heath MD / Alek Heath MD Interpreting Provider: Alek Heath MD Abdomen/Pelvis CT 02/13/19 10:15 IMPRESSION: 1. Findings concerning for partial small bowel obstruction, proximal to mid small bowel, likely related to adhesions; however, the appearance could be related to severe focal adynamic ileus. Gastric decompression via NG tube is a consideration for treatment. 2. Postsurgical sequela from partial distal colon resection with left lower quadrant colostomy. No pneumoperitoneum or loculated fluid collection to suggest anastomotic dehiscence or abscess. 3. Hepatic steatosis and mild hepatomegaly. 4. Small volume bilateral pleural effusion, right greater than left, with right basilar consolidation, possible pneumonia, and linear band of subsegmental atelectasis left lung base. D/ / Syd Washington / Syd Washington Interpreting Provider: Syd Washington - Attending Attestation I examined this patient and my medical decision-making was reviewed with the Resident Physician. I agree with the documented findings, disposition and treatment plan as described except to the extent set forth below. The patient is seen and evaluated on morning rounds. She is pain-free. Her white blood cell count is trending downward. I think it is appropriate for discharge at this time. I will see her in follow-up in one week. Kunal Lambert MD FACS
--- NOTE | 2018-04-19 09:51 | Physician Discharge Referral ---
Home Health/Hosp Referral Info Transfer to: Home Health - Diagnosis (1) Perforation of sigmoid colon due to diverticulitis Priority: Primary Status: Acute (2) Sepsis Priority: Primary Status: Acute (3) Leukocytosis Priority: Primary Status: Acute (4) Tachycardia Priority: Primary Status: Resolved (5) Electrolyte abnormality Priority: Primary Status: Acute (6) Smoking history Priority: Secondary Status: Acute - Respiratory Orders Smoking Cessation: Smoking cessation has been advised. For more information, call the [facility] Quit Line at [phone]-SZID-NOW. - Services Needed Following services are medically necessary services: Home Health Aide - Transfer Medications Prescriptions: Ondansetron ODT [Zofran ODT] 4 mg SL Q6HR PRN #15 tab.rapdis PRN Reason: Nausea OxyCODONE/APAP 5/325 [Percocet 5/325 MG] 1 each PO Q6HR PRN 7 Days #28 tablet PRN Reason: Breakthrough Pain Docusate [Colace] 100 mg PO BID #30 capsule Ibuprofen 800 mg PO Q8H #42 tablet Home Medications: Omeprazole [PriLOSEC] 20 mg PO DAILY 08/15/15 [History] Atenolol [Tenormin] 25 mg PO BID 04/12/18 [History] Cyanocobalamin (Vitamin B-12) [Vitamin B12] 1,000 mcg PO DAILY 04/12/18 [History] Ezetimibe 10 mg PO DAILY 04/12/18 [History] Ibuprofen [Ibu-200] 400 mg PO Q2H PRN 04/12/18 [History] Mv,Ca,Min/Folic Acid/Vit K1 [One-A-Day Women's 50 Plus Tab] 1 tab PO DAILY 04/12/18 [History] Tamsulosin [Flomax] 0.4 mg PO DAILY 04/12/18 [History] Varenicline Tartrate [Chantix] 1 mg PO BID 04/12/18 [History] Docusate [Colace] 100 mg PO BID #30 capsule 04/19/18 [Rx] Ibuprofen 800 mg PO Q8H #42 tablet 04/19/18 [Rx] Ondansetron ODT [Zofran ODT] 4 mg SL Q6HR PRN #15 tab.rapdis 04/19/18 [Rx] OxyCODONE/APAP 5/325 [Percocet 5/325 MG] 1 each PO Q6HR PRN 7 Days #28 tablet 04/19/18 [Rx] Allergies/Adverse Reactions: Allergy/AdvReac Type Severity Reaction Status Date / Time Cefaclor [From Ceclor] AdvReac Hives Verified 07/19/15 12:27 Certification: Further, I certify that my clinical findings support that this patient is homebound (i.e. absences from home require considerable and taxing effort and are for medical reasons or hinduism services or infrequently or short duration when for other reasons) because: Homebound Reason: Post-surgery restriction and or conditions limit ability to leave home Attestation: My signature below is to certify that this patient is under my care and that I, or nurse practitioner, or a physician's microbiology lab assistant working with me, has a [id number] encounter with this patient.
[2018-04-19] MEDS: Fluconazole 200 MG/100 ML 200 MG/100 ML BAG IVPB SCH (10:30)
== END 2018-04-19 11:22 | disposition home health service (06) | DRG 854 ==
LOC: EMEROOARM 08:55 → 3ANU 15:06 → ICNU 04-13 10:02 → 3ANU 04-15 10:56
PROVIDERS: ADMIT Surgery; ATTEND Surgery

== ENCOUNTER 2019-10-14 12:56 | Inpatient (IN) ==
[2019-10-14] MEDS ORDERED: Ondansetron 4 MG/2 ML VIAL IVP ONE ×2 (13:43→15:45)
[2019-10-14] MEDS ORDERED: 0.9 % Sodium Chloride 1,000 ML IVC ONE ×2 (14:01→18:34)
[2019-10-14] MEDS ORDERED: Morphine Sulfate 2 MG/ML SYRINGE IVP ONE ×2 (14:01→15:45)
[2019-10-14 14:05] LABS: Basophils % 0.3 %; Eosinophils % 0.1 %; Hematocrit 47.4 % (35.3-44.9); Hemoglobin 15.5 g/dL (11.5-15.4); Immature Granulocytes % 0.7 % (0-4); Lymphocytes # 1.4 K/mcL (0.6-4.6); Lymphocytes % 10.9 %; Mean Corpuscular HGB Conc 32.7 g/dL (31.6-35.5); Mean Corpuscular Hemoglobin 35.9 pg (28.0-33.3); Mean Corpuscular Volume 109.7 fL (83.0-100.0); Mean Platelet Volume 11.4 fL (9.4-12.4); Monocytes # 0.5 K/mcL (0.0-1.3); Monocytes % 4.2 %; Neutrophils # 10.8 K/mcL (1.6-8.9); Platelet Count 229 K/mcL (140-400); Red Blood Count 4.32 M/mcL (3.82-4.97); Red Cell Distribution Width 13.4 % (11.5-14.5); Segmented Neutrophils % 83.8 %; White Blood Count 12.9 K/mcL (4.3-11.1)
[2019-10-14] MEDS ORDERED: Isovue-370 500 ML BOTTLE IVP ONE (14:05)
[2019-10-14 14:37] LABS: BUN/Creatinine Ratio 16 (6-26); Blood Urea Nitrogen 10 mg/dL (6-20); Calcium 9.6 mg/dL (8.6-10.3); Carbon Dioxide 24 mEq/L (23-29); Chloride 98 mEq/L (98-107); Glucose 162 mg/dL (70-105); Lipase 527 Units/L (11-82); Osmolality,Calculated 279 (280-300); Potassium 4.7 mEq/L (3.5-5.1); Sodium 133 mEq/L (136-145); Troponin I < 0.03 ng/mL (< 0.04); eGFR For African Americans > 60 (> 60); eGFR For Non-African Americans > 60 (> 60)
[2019-10-14 15:26] LABS: Bilirubin,Urine Negative (Negative); Blood,Urine Small (Negative); Clarity,Urine Clear (Clear); Color,Urine Yellow (Yellow); Glucose,Urine (UA) Normal (Normal); Ketones,Urine Negative (Negative); Leukocyte Esterase,Urine Negative (Negative); Mucus,Urine Few per lpf (None-Few); Nitrite,Urine Negative (Negative); PH,Urine 6.5 pH Units (5.0-8.0); Protein,Urine 100 mg/dL (Neg-Trace); RBC,Urine 15-30 per hpf (0-3); Specific Gravity,Urine 1.019 (1.010-1.025); Squamous Epithelial Cell,Urine Few per hpf (None-Few); Urobilinogen,Urine Normal (Normal); WBC,Urine 0-3 per hpf (0-3)
[2019-10-14] MEDS ORDERED: Naloxone 0.4 MG/ML INJ IVP PRN (16:43)
[2019-10-14] MEDS ORDERED: Melatonin 3 MG TABLET PO PRN (16:55)
[2019-10-14 16:56] LABS: Alanine Aminotransferase 60 Units/L (7-52); Albumin 4.4 g/dL (3.5-5.7); Albumin/Globulin Ratio 1.6 (1.1-2.2); Alkaline Phosphatase 96 Units/L (34-104); Aspartate Amino Transferase 29 Units/L (13-39); Bilirubin,Direct 0.1 mg/dL (0.0-0.2); Bilirubin,Indirect 0.4 mg/dL (0.0-1.0); Bilirubin,Total 0.5 mg/dL (0.3-1.0); Chol/HDL Ratio 4.2 (0-4.9); Cholesterol 180 mg/dL (< 200); Ethanol < 10 mg/dL (Less than 10); Globulin 2.7 g/dL (2.4-3.5); HDL Cholesterol 43 mg/dL (40-59); LDL Cholesterol,Calculated 94 mg/dL (< 100); Total Protein 7.1 g/dL (6.4-8.9); Triglycerides 217 mg/dL (< 150)
[2019-10-14] MEDS ORDERED: *HR* LORazepam 2 MG/ML VIAL IVP PRN ×3 (16:56)
[2019-10-14] MEDS ORDERED: *HR* Dextrose 50 % in Water (Vial) 50 ML VIAL IVP PRN (16:58)
[2019-10-14] MEDS ORDERED: Dextrose Gel 15 GM/37.5 ML TUBE PO PRN ×4 (16:58)
[2019-10-14] MEDS ORDERED: D5% in Water 1,000 ML IVC PRN (16:58)
[2019-10-14] MEDS ORDERED: Pantoprazole 40 MG VIAL IVP ONE (17:28)
[2019-10-14] MEDS ORDERED: 0.9 % Sodium Chloride 1,000 ML IVC SCH (18:45)
[2019-10-14] MEDS ORDERED: *HR* HYDROmorphone (PF) 1 MG/ML SYRINGE IVP ONE ×2 (19:42→23:31)
[2019-10-14] MEDS: Ondansetron 4 MG/2 ML VIAL IVP PRN (19:51)
[2019-10-14] MEDS: Insulin LISPRO 300 UNITS/3 ML VIAL SQ SCH ×2 (19:57→23:51)
[2019-10-14] MEDS: Thiamine (B-1) 100 MG, Folic Acid 1 MG, MVI, adult with vitamin K 10 ML in 0.9 % Sodi... IVPB SCH (20:10)
[2019-10-14] MEDS: atenoloL 25 MG TABLET PO SCH (20:11)
[2019-10-14 23:49] LABS: Amphetamine Screen,Urine Negative ng/mL (Cutoff=1000); Barbiturate Screen,Urine Negative ng/mL (Cutoff=200); Benzodiazepines Screen,Urine Negative ng/mL (Cutoff=200); Cannabinoid Screen,Urine Positive ng/mL (Cutoff = 50); Cocaine Screen,Urine Negative ng/mL (Cutoff= 300); Opiate Screen,Urine Positive ng/mL (Cutoff=300); Phencyclidine Screen,Urine Negative ng/mL (Cutoff=25)
[2019-10-15 01:31] LABS: Basophils % 0.1 %; Eosinophils % 0.2 %; Hematocrit 44.4 % (35.3-44.9); Hemoglobin 14.4 g/dL (11.5-15.4); Immature Granulocytes % 0.6 % (0-4); Lymphocytes # 1.2 K/mcL (0.6-4.6); Lymphocytes % 7.2 %; Mean Corpuscular HGB Conc 32.4 g/dL (31.6-35.5); Mean Corpuscular Hemoglobin 34.5 pg (28.0-33.3); Mean Corpuscular Volume 106.5 fL (83.0-100.0); Mean Platelet Volume 11.7 fL (9.4-12.4); Monocytes # 0.8 K/mcL (0.0-1.3); Monocytes % 4.7 %; Platelet Count 202 K/mcL (140-400); Red Blood Count 4.17 M/mcL (3.82-4.97); Red Cell Distribution Width 13.4 % (11.5-14.5); Segmented Neutrophils % 87.2 %; White Blood Count 16.1 K/mcL (4.3-11.1)
[2019-10-15 01:33] LABS: Prothrombin Time 11.8 Seconds (9.4-12.1)
[2019-10-15 02:03] LABS: Alanine Aminotransferase 46 Units/L (7-52); Albumin/Globulin Ratio 1.7 (1.1-2.2); Alkaline Phosphatase 66 Units/L (34-104); Amylase 295 Units/L (29-103); Aspartate Amino Transferase 20 Units/L (13-39); BUN/Creatinine Ratio 17 (6-26); Bilirubin,Total 0.4 mg/dL (0.3-1.0); Blood Urea Nitrogen 8 mg/dL (6-20); Calcium 8.5 mg/dL (8.6-10.3); Carbon Dioxide 22 mEq/L (23-29); Chloride 102 mEq/L (98-107); Globulin 2.3 g/dL (2.4-3.5); Glucose 139 mg/dL (70-105); Lipase 1459 Units/L (11-82); Magnesium 1.7 mg/dL (1.6-2.6); Osmolality,Calculated 277 (280-300); Phosphorous 2.8 mg/dL (2.7-4.5); Sodium 133 mEq/L (136-145); Total Protein 6.3 g/dL (6.4-8.9); eGFR For African Americans > 60 (> 60); eGFR For Non-African Americans > 60 (> 60)
[2019-10-15] MEDS: Ondansetron 4 MG/2 ML VIAL IVP PRN ×2 (04:18→15:51)
[2019-10-15] MEDS: Insulin LISPRO 300 UNITS/3 ML VIAL SQ SCH ×3 (06:29→17:26)
[2019-10-15] MEDS: atenoloL 25 MG TABLET PO SCH ×2 (08:14→20:34)
[2019-10-15] MEDS ORDERED: (Ezetimibe 10 MG) PO SCH (09:00)
[2019-10-15] MEDS: MetroNIDAZOLE 500 MG/100 ML 500 MG/100 ML BAG IVPB SCH ×2 (12:07→20:34)
[2019-10-15] MEDS: 0.9 % Sodium Chloride 1,000 ML IVC SCH (12:07)
[2019-10-15] MEDS: Thiamine (B-1) 100 MG, Folic Acid 1 MG, MVI, adult with vitamin K 10 ML in 0.9 % Sodi... IVPB SCH (17:42)
[2019-10-16] MEDS: Insulin LISPRO 300 UNITS/3 ML VIAL SQ SCH ×4 (01:58→17:29)
[2019-10-16] MEDS: 0.9 % Sodium Chloride 1,000 ML IVC SCH ×2 (02:48→18:35)
[2019-10-16] MEDS: MetroNIDAZOLE 500 MG/100 ML 500 MG/100 ML BAG IVPB SCH ×3 (03:13→21:02)
[2019-10-16 05:24] LABS: Basophils % 0.2 %; Eosinophils % 0.2 %; Hematocrit 40.6 % (35.3-44.9); Hemoglobin 13.3 g/dL (11.5-15.4); Immature Granulocytes % 0.9 % (0-4); Lymphocytes # 1.8 K/mcL (0.6-4.6); Lymphocytes % 10.6 %; Mean Corpuscular HGB Conc 32.8 g/dL (31.6-35.5); Mean Corpuscular Hemoglobin 35.3 pg (28.0-33.3); Mean Corpuscular Volume 107.7 fL (83.0-100.0); Mean Platelet Volume 11.9 fL (9.4-12.4); Monocytes % 5.7 %; Neutrophils # 14.1 K/mcL (1.6-8.9); Platelet Count 201 K/mcL (140-400); Red Blood Count 3.77 M/mcL (3.82-4.97); Red Cell Distribution Width 13.7 % (11.5-14.5); Segmented Neutrophils % 82.4 %; White Blood Count 17.1 K/mcL (4.3-11.1)
[2019-10-16 05:44] LABS: Alanine Aminotransferase 30 Units/L (7-52); Albumin 3.6 g/dL (3.5-5.7); Albumin/Globulin Ratio 1.5 (1.1-2.2); Alkaline Phosphatase 76 Units/L (34-104); Aspartate Amino Transferase 16 Units/L (13-39); BUN/Creatinine Ratio 12 (6-26); Bilirubin,Total 0.5 mg/dL (0.3-1.0); Blood Urea Nitrogen 6 mg/dL (6-20); Calcium 8.8 mg/dL (8.6-10.3); Carbon Dioxide 24 mEq/L (23-29); Chloride 104 mEq/L (98-107); Globulin 2.4 g/dL (2.4-3.5); Glucose 125 mg/dL (70-105); Lipase 328 Units/L (11-82); Osmolality,Calculated 279 (280-300); Potassium 3.7 mEq/L (3.5-5.1); Sodium 135 mEq/L (136-145); eGFR For African Americans > 60 (> 60); eGFR For Non-African Americans > 60 (> 60)
[2019-10-16] MEDS: atenoloL 25 MG TABLET PO SCH ×2 (09:56→21:03)
[2019-10-16] MEDS: Thiamine (B-1) 100 MG, Folic Acid 1 MG, MVI, adult with vitamin K 10 ML in 0.9 % Sodi... IVPB SCH (18:28)
[2019-10-17] MEDS: Insulin LISPRO 300 UNITS/3 ML VIAL SQ SCH ×2 (00:30→05:46)
[2019-10-17] MEDS: MetroNIDAZOLE 500 MG/100 ML 500 MG/100 ML BAG IVPB SCH (04:45)
[2019-10-17 06:30] LABS: Basophils % 0.3 %; Eosinophils # 0.2 K/mcL (0.0-0.6); Eosinophils % 1.3 %; Hematocrit 36.9 % (35.3-44.9); Hemoglobin 11.9 g/dL (11.5-15.4); Immature Granulocytes % 0.7 % (0-4); Lymphocytes # 1.9 K/mcL (0.6-4.6); Mean Corpuscular HGB Conc 32.2 g/dL (31.6-35.5); Mean Corpuscular Hemoglobin 35.4 pg (28.0-33.3); Mean Corpuscular Volume 109.8 fL (83.0-100.0); Mean Platelet Volume 11.8 fL (9.4-12.4); Monocytes # 1.2 K/mcL (0.0-1.3); Monocytes % 7.7 %; Neutrophils # 12.3 K/mcL (1.6-8.9); Platelet Count 185 K/mcL (140-400); Red Blood Count 3.36 M/mcL (3.82-4.97); Red Cell Distribution Width 13.7 % (11.5-14.5); White Blood Count 15.8 K/mcL (4.3-11.1)
[2019-10-17 06:57] LABS: Alanine Aminotransferase 28 Units/L (7-52); Albumin 3.3 g/dL (3.5-5.7); Albumin/Globulin Ratio 1.5 (1.1-2.2); Alkaline Phosphatase 93 Units/L (34-104); Aspartate Amino Transferase 22 Units/L (13-39); BUN/Creatinine Ratio 18 (6-26); Bilirubin,Total 0.6 mg/dL (0.3-1.0); Blood Urea Nitrogen 8 mg/dL (6-20); Calcium 8.6 mg/dL (8.6-10.3); Carbon Dioxide 22 mEq/L (23-29); Chloride 104 mEq/L (98-107); Globulin 2.2 g/dL (2.4-3.5); Glucose 100 mg/dL (70-105); Lipase 130 Units/L (11-82); Osmolality,Calculated 276 (280-300); Potassium 3.5 mEq/L (3.5-5.1); Sodium 134 mEq/L (136-145); Total Protein 5.5 g/dL (6.4-8.9); eGFR For African Americans > 60 (> 60); eGFR For Non-African Americans > 60 (> 60)
[2019-10-17] MEDS: atenoloL 25 MG TABLET PO SCH (08:42)
[2019-10-17 08:50] VITALS: BP 130/83
== END 2019-10-17 10:32 | disposition home or self-care (01) | DRG 439 ==
LOC: EMEROOARM 12:56 → 3ANU 12:56 → SUATTDRO 17:45 → 3ANU 18:38
PROVIDERS: ADMIT Internal Medicine; ATTEND Family Medicine